=== PATIENT | male | born 1950 | race Hispanic/Latino ===

== ENCOUNTER 2016-12-17 15:33 | Emergency (ER) | payer MEDICAID ==
[2016-12-17 16:28] LABS: Basophils % (Auto) 0.4 % (0.0-1.8); Eosinophils % (Auto) 0.2 % (0.0-4.3); Hematocrit 48.8 % (35.5-45.6); Hemoglobin 15.7 gm/dl (11.8-15.2); Mean Corpuscular HGB Conc 32 % (32-34); Mean Corpuscular Hemoglobin 27 pg (28-32); Mean Corpuscular Volume 83 fl (84-94); Platelet Count 179 K/mm3 (140-440); Red Blood Count 5.85 M/mm3 (3.65-5.03); Red Cell Distribution Width 16.4 % (13.2-15.2); White Blood Count 13.4 K/mm3 (4.5-11.0)
--- NOTE | 2016-12-17 16:28 | XRay Report ---
CHEST 2 VIEWS INDICATION: Shortness of breath. COMPARISON: None similar at this institution. FINDINGS: PA and lateral chest radiographs demonstrate normal cardiomediastinal silhouette. Hyperexpanded lungs without pleural effusions or CHF. Approximately 7 mm right lower lung calcified granuloma. Few old healed left rib fractures laterally. CONCLUSION: COPD and right lower lobe probable granuloma, as described. Please also correlate clinically and with prior chest imaging, if available. Thank you for the opportunity to participate in this patient's care.
[2016-12-17 16:40] LABS: Anion Gap 18 mmol/L; BUN/Creatinine Ratio 10; Blood Urea Nitrogen 6 mg/dL (9-20); Calcium 9.1 mg/dL (8.4-10.2); Carbon Dioxide 29 mmol/L (22-30); Chloride 96.8 mmol/L (98-107); Glucose 162 mg/dL (75-100); Potassium 4.5 mmol/L (3.6-5.0); Sodium 139 mmol/L (137-145)
[2016-12-17 18:00] LABS: Bilirubin,Urine NEG (Negative); Blood,Urine NEG (Negative); Ketones,Urine NEG (Negative); Leukocyte Esterase,Urine TR (Negative); Nitrite,Urine NEG (Negative); Protein,Urine <15 mg/dL mg/dL (Negative); Urobilinogen,Urine < 2.0 mg/dL (<2.0); WBC,Urine < 1.0 /HPF (0.0-6.0)
[2016-12-17] MEDS ORDERED: PROVENTIL IH ONE (20:21)
[2016-12-18] MEDS ORDERED: ATROVENT IH ONE (02:38)
[2016-12-18] MEDS ORDERED: NORCO 5/325 PO ONE (02:38)
[2016-12-18] MEDS ORDERED: DELTASONE PO ONE (02:38)
[2016-12-18] MEDS: PROVENTIL IH ONE (03:11)
--- NOTE | 2016-12-18 04:08 | Emergency Department Report ---
ED Shortness of Breath HPI - General Chief Complaint: Dyspnea/Respdistress Stated Complaint: MED REFILL/BREATHING ISSUE Time Seen by Provider: 12/18/16 02:28 Source: patient Mode of arrival: Ambulatory Limitations: No Limitations - History of Present Illness Initial Comments: 56 year old male with a past medical history CHF, COPD, and insomnia with chronic pain secondary to previous back surgery presents to the hospital with complaints of shortness of breath and wheezing times several days. Positive cough productive of yellow sputum reported. Patient has been out of all his medications for the past 3 weeks he has not found a primary care doctor since moving from [place] 3 months ago. Patient complains of associated chest tightness with wheezing but denies actual pain. Patient denies fever, no calf tenderness, or edema. Patient complains of bilateral hip pain and was told in the past that he needs a hip replacement. - Related Data Previous Rx's Medication Instructions Recorded Last Taken Type Albuterol Sulfate [Ventolin HFA] 2 puff IH Q4H PRN #1 hfa.aer.ad 12/18/16 Unknown Rx Duloxetine HCl [Cymbalta] 60 mg PO BID #60 capsule.dr 12/18/16 Unknown Rx Fluticasone/Vilanterol [Breo 1 each IH DAILY #1 blst.w.dev 12/18/16 Unknown Rx Ellipta 200-25 Mcg INH] Gabapentin [Neurontin] 300 mg PO TID #90 capsule 12/18/16 Unknown Rx HYDROcodone/APAP 5-325 [Munger 1 each PO Q6HR PRN #15 tablet 12/18/16 Unknown Rx 5/325] Hydrochlorothiazide [HCTZ] 25 mg PO QDAY #30 tablet 12/18/16 Unknown Rx Ibuprofen 800 mg PO Q8H PRN #60 tablet 12/18/16 Unknown Rx Tiotropium [place] [Spiriva] 18 mcg IH 4XD #1 cap.w.dev 12/18/16 Unknown Rx amLODIPine [Norvasc] 10 mg PO DAILY #30 tablet 12/18/16 Unknown Rx traZODone [Desyrel] 150 mg PO QHS #30 tablet 12/18/16 Unknown Rx Allergies Allergy/AdvReac Type Severity Reaction Status Date / Time codeine Allergy Itching Verified 12/17/16 16:09 ED Review of Systems ROS: Stated complaint: MED REFILL/BREATHING ISSUE Other details as noted in HPI Comment: All other systems reviewed and negative Other: Constitutional: No fevers chills Eyes: No eye pain visual changes ENT: No ear pain or throat pain Neck: Denies pain Respiratory: As per HPI Cardiovascular: Chest tightness GI: Denies abdominal pain, nausea, vomiting, diarrhea : Denies dysuria Musculoskeletal: As per HPI Skin: Denies rash, lesions, erythema Neurologic: Denies headache, numbness, weakness Psychiatric: Denies suicidal ideation, hallucinations ED Past Medical Hx - Past Medical History Hx Congestive Heart Failure: Yes Hx Psychiatric Treatment: Yes (insomnia) Hx COPD: Yes - Surgical History Additional Surgical History: back surgery with radiating pain - Social History Smoking Status: Current Every Day Smoker Substance Use Type: Alcohol - Medications Home Medications: Home Medications Medication Instructions Recorded Confirmed Last Taken Type Albuterol Sulfate [Ventolin HFA] 2 puff IH Q4H PRN #1 hfa.aer.ad 12/18/16 Unknown Rx Duloxetine HCl [Cymbalta] 60 mg PO BID #60 capsule.dr 12/18/16 Unknown Rx Fluticasone/Vilanterol [Breo 1 each IH DAILY #1 blst.w.dev 12/18/16 Unknown Rx Ellipta 200-25 Mcg INH] Gabapentin [Neurontin] 300 mg PO TID #90 capsule 12/18/16 Unknown Rx HYDROcodone/APAP 5-325 [Munger 1 each PO Q6HR PRN #15 tablet 12/18/16 Unknown Rx 5/325] Hydrochlorothiazide [HCTZ] 25 mg PO QDAY #30 tablet 12/18/16 Unknown Rx Ibuprofen 800 mg PO Q8H PRN #60 tablet 12/18/16 Unknown Rx Tiotropium [place] [Spiriva] 18 mcg IH 4XD #1 cap.w.dev 12/18/16 Unknown Rx amLODIPine [Norvasc] 10 mg PO DAILY #30 tablet 12/18/16 Unknown Rx traZODone [Desyrel] 150 mg PO QHS #30 tablet 12/18/16 Unknown Rx ED Physical Exam - General Limitations: No Limitations - Other Other exam information: General: No limitations, patient is alert in no acute distress Head exam: Atraumatic, normocephalic Eyes exam: Normal appearance ENT: Moist mucous membrane Neck exam: Normal inspection, full range of motion, no meningismus nontender Respiratory exam: Mild persistent expiratory wheezes, no tachypnea or accessory muscle use Cardiovascular: Normal rate and rhythm, normal heart sounds Abdomen: Soft, nondistended, and nontender, with normal bowel sounds, no rebound, or guarding Extremity: Full range of motion normal inspection no deformity calf tenderness or edema. Pain to bilateral hips with movement. No shortening or deformity Back: Normal Inspection, full range of motion, no tenderness Neurologic: Alert, oriented x3, cranial nerves intact, no motor or sensory deficit Psychiatric: normal affect, normal mood Skin: Warm, dry, intact ED Course Vital Signs 12/17/16 12/17/16 12/17/16 15:49 16:02 20:35 Temperature 98.2 F 98.9 F Pulse Rate 99 H 95 H Pulse Rate [ Posterior] Respiratory 24 24 Rate Respiratory Rate [Posterior ] Blood Pressure 127/80 127/80 139/88 Blood Pressure [Left] O2 Sat by Pulse 95 93 Oximetry 12/17/16 12/17/16 12/18/16 23:45 23:59 00:00 Temperature 98.6 F Pulse Rate 84 Pulse Rate [ Posterior] Respiratory 18 Rate Respiratory Rate [Posterior ] Blood Pressure 122/79 122/79 Blood Pressure 147/79 [Left] O2 Sat by Pulse 95 97 94 Oximetry 12/18/16 12/18/16 12/18/16 00:15 00:30 00:45 Temperature Pulse Rate 82 83 83 Pulse Rate [ Posterior] Respiratory 19 18 13 Rate Respiratory Rate [Posterior ] Blood Pressure 131/86 131/86 130/80 Blood Pressure [Left] O2 Sat by Pulse 95 95 Oximetry 12/18/16 12/18/16 12/18/16 01:00 01:15 01:30 Temperature Pulse Rate 74 75 81 Pulse Rate [ Posterior] Respiratory 15 19 16 Rate Respiratory Rate [Posterior ] Blood Pressure 128/85 132/80 129/99 Blood Pressure [Left] O2 Sat by Pulse 98 98 96 Oximetry 12/18/16 12/18/16 12/18/16 01:45 02:00 02:15 Temperature Pulse Rate 77 73 76 Pulse Rate [ Posterior] Respiratory 12 12 14 Rate Respiratory Rate [Posterior ] Blood Pressure 117/76 118/75 128/86 Blood Pressure [Left] O2 Sat by Pulse 95 94 96 Oximetry 12/18/16 12/18/16 12/18/16 02:30 02:45 03:01 Temperature Pulse Rate 80 77 75 Pulse Rate [ Posterior] Respiratory 15 16 18 Rate Respiratory Rate [Posterior ] Blood Pressure 123/81 128/79 128/79 Blood Pressure [Left] O2 Sat by Pulse 97 94 95 Oximetry 12/18/16 12/18/16 12/18/16 03:15 03:16 03:31 Temperature Pulse Rate Pulse Rate [ 87 Posterior] Respiratory 16 Rate Respiratory 22 Rate [Posterior ] Blood Pressure 133/81 110/50 Blood Pressure [Left] O2 Sat by Pulse 100 100 Oximetry 12/18/16 12/18/16 12/18/16 03:45 04:00 04:06 Temperature Pulse Rate 98 H Pulse Rate [ Posterior] Respiratory 20 Rate Respiratory Rate [Posterior ] Blood Pressure 124/70 132/78 Blood Pressure 132/78 [Left] O2 Sat by Pulse 94 94 98 Oximetry 12/18/16 05:44 Temperature 98.4 F Pulse Rate 91 H Pulse Rate [ Posterior] Respiratory 16 Rate Respiratory Rate [Posterior ] Blood Pressure Blood Pressure 109/68 [Left] O2 Sat by Pulse 94 Oximetry - Reevaluation(s) Reevaluation #1: 12/18/16 04:09 Patient received nebulized treatments prior to my evaluation Reevaluation #2: 12/18/16 04:14 Wheezing improved and patient feels better with treatment. Repeat EKG and troponin pending - Consultations Consultation #1: 12/18/16 05:31 I discussed EKG with Dr. hardy. EKG reviewed and felt to be nonspecific. Patient has 2 negative cardiac enzymes and unchanged EKG without current chest pain. ED Medical Decision Making - Lab Data Result diagrams: 12/17/16 16:11 12/17/16 16:11 Lab Results 12/17/16 12/17/16 12/17/16 Range/Units 16:11 16:11 Unknown WBC 13.4 H (4.5-11.0) K/mm3 RBC 5.85 H (3.65-5.03) M/mm3 Hgb 15.7 H (11.8-15.2) gm/dl Hct 48.8 H (35.5-45.6) % MCV 83 L (84-94) fl MCH 27 L (28-32) pg MCHC 32 (32-34) % RDW 16.4 H (13.2-15.2) % Plt Count 179 (140-440) K/mm3 Lymph % (Auto) 9.8 L (13.4-35.0) % [place] % (Auto) 6.2 (0.0-7.3) % Eos % (Auto) 0.2 (0.0-4.3) % Baso % (Auto) 0.4 (0.0-1.8) % Lymph # 1.3 (1.2-5.4) K/mm3 [place] # 0.8 (0.0-0.8) K/mm3 Eos # 0.0 (0.0-0.4) K/mm3 Baso # 0.1 (0.0-0.1) K/mm3 Seg Neutrophils % 83.4 H (40.0-70.0) % Seg Neutrophils # 11.2 H (1.8-7.7) K/mm3 Sodium 139 (137-145) mmol/L Potassium 4.5 (3.6-5.0) mmol/L Chloride 96.8 L (98-107) mmol/L Carbon Dioxide 29 (22-30) mmol/L Anion Gap 18 mmol/L BUN 6 L (9-20) mg/dL Creatinine 0.6 L (0.8-1.5) mg/dL Estimated GFR > 60 ml/min BUN/Creatinine Ratio 10 % Glucose 162 H (75-100) mg/dL Calcium 9.1 (8.4-10.2) mg/dL Troponin T < 0.010 (0.00-0.029) ng/mL Urine Color Yellow (Yellow) Urine Turbidity Clear (Clear) Urine pH 7.0 (5.0-7.0) Ur Specific Solo 1.004 (1.003-1.030) Urine Protein <15 mg/dl (Negative) mg/dL Urine Glucose (UA) Neg (Negative) mg/dL Urine Ketones Neg (Negative) mg/dL Urine Blood Neg (Negative) Urine Nitrite Neg (Negative) Urine Bilirubin Neg (Negative) Urine Urobilinogen < 2.0 (<2.0) mg/dL Ur Leukocyte Esterase Tr (Negative) Urine WBC (Auto) < 1.0 (0.0-6.0) /HPF Urine RBC (Auto) 1.0 (0.0-6.0) /HPF U Epithel Cells (Auto) < 1.0 (0-13.0) /HPF - EKG Data -: EKG Interpreted by Me (sinus tach 99, PACs, left anterior fascicular block, early R-wave progressi) EKG shows normal: sinus rhythm Rate: normal (anterolateral ST depression) - EKG Data 12/18/16 05:31 BP EKG is sinus at a rate 89, PACs, and unchanged from previous. Persistent minimal anterolateral ST depression - Radiology Data Radiology results: report reviewed (chest x-ray: COPD, right lower lobe probable granuloma) - Medical Decision Making second troponin was negative. EKG unchanged thought to be nonspecific per lawn care specialist traffic control officer. Patient will be provided to refill his medications and outpatient follow-up - Differential Diagnosis COPD, asthma, CHF, bronchitis Critical Care Time: No Critical care attestation.: If time is entered above; I have spent that time in minutes in the direct care of this critically ill patient, excluding procedure time. ED Disposition Clinical Impression: COPD exacerbation, Medication refill, Chronic pain Disposition: TO HOME OR SELFCARE Is pt being admited?: No Does the pt Need Aspirin: No Condition: Stable Instructions: Chronic Obstructive Pulmonary Disease (ED) Additional Instructions: Continue medication as prescribed. Follow-up with the clinic or primary care doctor provider for further management. Return if symptoms worsen. Prescriptions: Albuterol Sulfate [Ventolin HFA] 2 puff IH Q4H PRN #1 hfa.aer.ad PRN Reason: Shortness Of Breath amLODIPine [Norvasc] 10 mg PO DAILY #30 tablet Duloxetine HCl [Cymbalta] 60 mg PO BID #60 capsule. Fluticasone/Vilanterol [Breo Ellipta 200-25 Mcg INH] 1 each IH DAILY #1 blst.w.dev Gabapentin [Neurontin] 300 mg PO TID #90 capsule Hydrochlorothiazide [HCTZ] 25 mg PO QDAY #30 tablet HYDROcodone/APAP 5-325 [Munger 5/325] 1 each PO Q6HR PRN #15 tablet PRN Reason: Pain Ibuprofen 800 mg PO Q8H PRN #60 tablet PRN Reason: Pain Tiotropium [place] [Spiriva] 18 mcg IH 4XD #1 cap.w.dev traZODone [Desyrel] 150 mg PO QHS #30 tablet Referrals: [facility] [Provider Group] - 3-5 Days VISHAL MCMILLAN MD [Staff Physician] - 3-5 Days Time of Disposition: 05:51
[2016-12-18 11:35] VITALS: BP 109/68
== END 2016-12-18 06:50 | disposition home or self-care (01) ==
LOC: ED 15:33
DX: J44.1 Chronic obstructive pulmonary disease with (acute) exacerbation (principal); G89.29 Other chronic pain; I50.9 Heart failure, unspecified; F17.200 Nicotine dependence, unspecified, uncomplicated; Z88.6 Allergy status to analgesic agent
CPT/HCPCS: 36415; 71020; 80048; 81001; 84484; 85025; 93005; 93010; 99284; J7512

== ENCOUNTER 2017-04-27 08:29 | Emergency (ER) | payer MEDICARE ==
[2017-04-27 08:57] VITALS: BP 120/68
--- NOTE | 2017-04-27 09:54 | XRay Report ---
Single view chest: Compared to 01/17/17. History: Shortness of breath. Findings: Normal cardiomediastinal silhouette. Trachea is midline. Mild COPD. No acute consolidation or pleural effusion. Impression: No acute cardiopulmonary findings.
[2017-04-27 10:37] LABS: Hematocrit TNR % (35.5-45.6); Hemoglobin TNR gm/dl (11.8-15.2); Mean Corpuscular Volume TNR fl (84-94); Red Blood Count TNR M/mm3 (3.65-5.03)
[2017-04-27 10:38] LABS: Basophils % (Auto) TNR % (0.0-1.8); Eosinophils % (Auto) TNR % (0.0-4.3); Lymphocytes # (Auto) TNR K/mm3 (1.2-5.4); Lymphocytes % (Auto) TNR % (13.4-35.0); Mean Corpuscular HGB Conc TNR % (32-34); Mean Corpuscular Hemoglobin TNR pg (28-32); Mean Platelet Volume TNR fl (6-12); Monocytes % (Auto) TNR % (0.0-7.3); Platelet Count TNR K/mm3 (140-440); Red Cell Distribution Width TNR % (13.2-15.2)
[2017-04-27 10:39] LABS: BUN/Creatinine Ratio 7; Basophils # (Auto) TNR K/mm3 (0.0-0.1); Blood Urea Nitrogen 4 mg/dL (9-20); Calcium 8.2 mg/dL (8.4-10.2); Eosinophils # (Auto) TNR K/mm3 (0.0-0.4); Hemolysis Index 140; Monocytes # (Auto) TNR K/mm3 (0.0-0.8)
[2017-04-27 10:43] LABS: Alanine Aminotransferase 10 units/L (7-56); Albumin 3.5 g/dL (3.9-5)
[2017-04-27 10:46] LABS: Bilirubin,Direct < 0.2 mg/dL (0-0.2)
[2017-04-27] MEDS ORDERED: DUONEB *Not for PRN Use IH ONE (10:56)
[2017-04-27 11:03] LABS: INR 0.92 (0.87-1.13)
[2017-04-27 11:04] LABS: Partial Thromboplastin Time 22.3 Sec. (24.2-36.6)
[2017-04-27 11:22] LABS: Creatine Kinase MB 1.8 ng/mL (0.0-4.0)
--- NOTE | 2017-04-27 11:50 | Emergency Department Report ---
ED General Adult HPI - General Chief complaint: Dyspnea/Respdistress Stated complaint: SHANA Time Seen by Provider: 04/27/17 09:33 Source: patient, EMS Mode of arrival: Stretcher Limitations: No Limitations - History of Present Illness Initial comments: The patient states that he is out of his medication for his home neb machine. He presented to the emergency department via EMS after receiving albuterol treatments. He states that his breathing is much improved at the time of my encounter. He denies having any chest pain pressure or tightness. He does not complain of any fever or chills or cough recently. He is essentially asymptomatic at the time of my exam. -: days(s) Associated Symptoms: denies other symptoms Treatments Prior to Arrival: other (albuterol) - Related Data Previous Rx's Medication Instructions Recorded Last Taken Type Albuterol Sulfate [Ventolin HFA] 2 puff IH Q4H PRN #1 hfa.aer.ad 01/21/17 Unknown Rx Duloxetine HCl [Cymbalta] 60 mg PO BID #60 capsule. 01/21/17 Unknown Rx Fluticasone/Vilanterol [Breo 1 each IH DAILY #1 blst.w.dev 01/21/17 Unknown Rx Ellipta 200-25 Mcg INH] Folic Acid [Folvite] 1 mg PO QDAY #30 tablet 01/21/17 Unknown Rx Gabapentin [Neurontin] 300 mg PO TID #90 capsule 01/21/17 Unknown Rx HYDROcodone/APAP 5-325 [[place] 1 each PO Q6H PRN #14 tablet 01/21/17 Unknown Rx 5-325 mg TAB] Hydrochlorothiazide [HCTZ] 25 mg PO QDAY #30 tablet 01/21/17 Unknown Rx Nicotine [Habitrol] 14 mg TD QDAY #30 patch 01/21/17 Unknown Rx Prednisone [predniSONE 10 mg 10 mg PO .TAPER #1 tab.ds.pk 01/21/17 Unknown Rx (6-Day Pack, 21 Tabs)] Thiamine [Vitamin B-1] 100 mg PO QDAY #30 tablet 01/21/17 Unknown Rx Tiotropium [place] [Spiriva] 18 mcg IH 4XD #1 cap.w.dev 01/21/17 Unknown Rx amLODIPine [Norvasc] 10 mg PO DAILY #30 tablet 01/21/17 Unknown Rx traZODone [Desyrel] 150 mg PO QHS #30 tablet 01/21/17 Unknown Rx ALBUTEROL Inhaler [ProAir HFA 1 puff IH Q4H PRN #1 inha 04/27/17 Unknown Rx Inhaler] ALBUTEROL NEB's [Proventil 0.083% 2.5 mg IH TID PRN #90 neb 04/27/17 Unknown Rx NEBS] predniSONE [Deltasone] 20 mg PO QDAY #6 tab 04/27/17 Unknown Rx Allergies Allergy/AdvReac Type Severity Reaction Status Date / Time codeine Allergy Itching Verified 12/17/16 16:09 ED Review of Systems ROS: Stated complaint: SHANA Other details as noted in HPI Constitutional: denies: chills, fever Eyes: denies: eye pain, eye discharge, vision change ENT: denies: ear pain, throat pain Respiratory: wheezing. denies: cough Cardiovascular: denies: chest pain, palpitations Endocrine: no symptoms reported Gastrointestinal: denies: abdominal pain, nausea, diarrhea Genitourinary: denies: urgency, dysuria Musculoskeletal: denies: back pain, joint swelling, arthralgia Skin: denies: rash, lesions Neurological: denies: headache, weakness, paresthesias Psychiatric: denies: anxiety, depression Hematological/Lymphatic: denies: easy bleeding, easy bruising ED Past Medical Hx - Past Medical History Hx Congestive Heart Failure: Yes Hx Psychiatric Treatment: Yes (insomnia) Hx COPD: Yes - Surgical History Additional Surgical History: back surgery with radiating pain - Social History Smoking Status: Current Every Day Smoker Substance Use Type: Alcohol - Medications Home Medications: Home Medications Medication Instructions Recorded Confirmed Last Taken Type Albuterol Sulfate [Ventolin HFA] 2 puff IH Q4H PRN #1 hfa.aer.ad 01/21/17 Unknown Rx Duloxetine HCl [Cymbalta] 60 mg PO BID #60 capsule. 01/21/17 Unknown Rx Fluticasone/Vilanterol [Breo 1 each IH DAILY #1 blst.w.dev 01/21/17 Unknown Rx Ellipta 200-25 Mcg INH] Folic Acid [Folvite] 1 mg PO QDAY #30 tablet 01/21/17 Unknown Rx Gabapentin [Neurontin] 300 mg PO TID #90 capsule 01/21/17 Unknown Rx HYDROcodone/APAP 5-325 [[place] 1 each PO Q6H PRN #14 tablet 01/21/17 Unknown Rx 5-325 mg TAB] Hydrochlorothiazide [HCTZ] 25 mg PO QDAY #30 tablet 01/21/17 Unknown Rx Nicotine [Habitrol] 14 mg TD QDAY #30 patch 01/21/17 Unknown Rx Prednisone [predniSONE 10 mg 10 mg PO .TAPER #1 tab.ds.pk 01/21/17 Unknown Rx (6-Day Pack, 21 Tabs)] Thiamine [Vitamin B-1] 100 mg PO QDAY #30 tablet 01/21/17 Unknown Rx Tiotropium [place] [Spiriva] 18 mcg IH 4XD #1 cap.w.dev 01/21/17 Unknown Rx amLODIPine [Norvasc] 10 mg PO DAILY #30 tablet 01/21/17 Unknown Rx traZODone [Desyrel] 150 mg PO QHS #30 tablet 01/21/17 Unknown Rx ALBUTEROL Inhaler [ProAir HFA 1 puff IH Q4H PRN #1 inha 04/27/17 Unknown Rx Inhaler] ALBUTEROL NEB's [Proventil 0.083% 2.5 mg IH TID PRN #90 neb 04/27/17 Unknown Rx NEBS] predniSONE [Deltasone] 20 mg PO QDAY #6 tab 04/27/17 Unknown Rx ED Physical Exam - General Limitations: No Limitations General appearance: alert, in no apparent distress - Head Head exam: Present: atraumatic, normocephalic - Eye Eye exam: Present: normal appearance. Absent: scleral icterus - ENT ENT exam: Present: mucous membranes moist - Neck Neck exam: Present: normal inspection - Respiratory Respiratory exam: Present: decreased breath sounds (breath sounds are somewhat distant but there was no wheezing). Absent: respiratory distress - Cardiovascular Cardiovascular Exam: Present: regular rate, normal rhythm. Absent: systolic murmur, diastolic murmur, rubs, gallop - GI/Abdominal GI/Abdominal exam: Present: soft, normal bowel sounds. Absent: distended, tenderness, guarding, rebound, rigid - Rectal Rectal exam: Present: deferred - Extremities Exam Extremities exam: Present: normal inspection - Back Exam Back exam: Present: normal inspection - Neurological Exam Neurological exam: Present: alert, oriented X3, CN II-XII intact. Absent: motor sensory deficit - Psychiatric Psychiatric exam: Present: normal affect, normal mood - Skin Skin exam: Present: warm, dry, intact, normal color. Absent: rash ED Course Vital Signs 04/27/17 04/27/17 04/27/17 08:52 11:26 11:39 Temperature 97.8 F Pulse Rate 81 Pulse Rate [ 97 H 79 Anterior Bilateral Throughout] Respiratory 18 18 Rate [Anterior Bilateral Throughout] Blood Pressure 120/68 O2 Sat by Pulse 99 Oximetry - Reevaluation(s) Reevaluation #1: Patient received another neb with improvement. He will be given a prescription for albuterol solution, inhaler, and a brief course of prednisone. He will be referred for primary care follow-up. He will be given the name of a rough rice tender as well. 04/27/17 11:50 ED Medical Decision Making - Lab Data Result diagrams: 04/27/17 11:46 04/27/17 09:54 Laboratory Results - last 24 hr 04/27/17 04/27/17 04/27/17 09:54 09:54 09:54 WBC TNR RBC TNR Hgb TNR Hct TNR MCV TNR MCH TNR MCHC TNR RDW TNR Plt Count TNR Lymph % (Auto) TNR Lane % (Auto) TNR Eos % (Auto) TNR Baso % (Auto) TNR Lymph # TNR Lane # TNR Eos # TNR Baso # TNR Seg Neutrophils % TNR Seg Neutrophils # TNR PT 12.8 INR 0.92 APTT 22.3 L Sodium 142 Potassium 4.1 Chloride 99.0 Carbon Dioxide 30 Anion Gap 17 BUN 4 L Creatinine 0.6 L Estimated GFR > 60 BUN/Creatinine Ratio 7 Glucose 87 Lactic Acid Calcium 8.2 L Magnesium Total Bilirubin Direct Bilirubin Indirect Bilirubin AST ALT Alkaline Phosphatase Total Creatine Kinase CK-MB (CK-2) CK-MB (CK-2) Rel Index Troponin T NT-Pro-B Natriuret Pep Total Protein Albumin Albumin/Globulin Ratio 04/27/17 04/27/17 09:54 09:54 WBC RBC Hgb Hct MCV MCH MCHC RDW Plt Count Lymph % (Auto) Lane % (Auto) Eos % (Auto) Baso % (Auto) Lymph # Lane # Eos # Baso # Seg Neutrophils % Seg Neutrophils # PT INR APTT Sodium Potassium Chloride Carbon Dioxide Anion Gap BUN Creatinine Estimated GFR BUN/Creatinine Ratio Glucose Lactic Acid 1.70 Calcium Magnesium 1.80 Total Bilirubin 0.30 Direct Bilirubin < 0.2 Indirect Bilirubin 0.1 AST 15 ALT 10 Alkaline Phosphatase 40 Total Creatine Kinase 62 CK-MB (CK-2) 1.8 CK-MB (CK-2) Rel Index 2.9 Troponin T < 0.010 NT-Pro-B Natriuret Pep 54.45 Total Protein 5.7 L Albumin 3.5 L Albumin/Globulin Ratio 1.6 Laboratory Results - last 24 hr 04/27/17 04/27/17 04/27/17 09:54 09:54 09:54 WBC TNR RBC TNR Hgb TNR Hct TNR MCV TNR MCH TNR MCHC TNR RDW TNR Plt Count TNR Lymph % (Auto) TNR Lane % (Auto) TNR Eos % (Auto) TNR Baso % (Auto) TNR Lymph # TNR Lane # TNR Eos # TNR Baso # TNR Seg Neutrophils % TNR Seg Neutrophils # TNR PT 12.8 INR 0.92 APTT 22.3 L Sodium 142 Potassium 4.1 Chloride 99.0 Carbon Dioxide 30 Anion Gap 17 BUN 4 L Creatinine 0.6 L Estimated GFR > 60 BUN/Creatinine Ratio 7 Glucose 87 Lactic Acid Calcium 8.2 L Magnesium Total Bilirubin Direct Bilirubin Indirect Bilirubin AST ALT Alkaline Phosphatase Total Creatine Kinase CK-MB (CK-2) CK-MB (CK-2) Rel Index Troponin T NT-Pro-B Natriuret Pep Total Protein Albumin Albumin/Globulin Ratio 04/27/17 04/27/17 09:54 09:54 WBC RBC Hgb Hct MCV MCH MCHC RDW Plt Count Lymph % (Auto) Lane % (Auto) Eos % (Auto) Baso % (Auto) Lymph # Lane # Eos # Baso # Seg Neutrophils % Seg Neutrophils # PT INR APTT Sodium Potassium Chloride Carbon Dioxide Anion Gap BUN Creatinine Estimated GFR BUN/Creatinine Ratio Glucose Lactic Acid 1.70 Calcium Magnesium 1.80 Total Bilirubin 0.30 Direct Bilirubin < 0.2 Indirect Bilirubin 0.1 AST 15 ALT 10 Alkaline Phosphatase 40 Total Creatine Kinase 62 CK-MB (CK-2) 1.8 CK-MB (CK-2) Rel Index 2.9 Troponin T < 0.010 NT-Pro-B Natriuret Pep 54.45 Total Protein 5.7 L Albumin 3.5 L Albumin/Globulin Ratio 1.6 - EKG Data -: EKG Interpreted by Me EKG shows normal: sinus rhythm, axis, intervals, QRS complexes, ST-T waves Rate: normal - EKG Data Interpretation: no acute changes - Radiology Data Radiology results: report reviewed (consistent with COPD no acute change) Critical care attestation.: If time is entered above; I have spent that time in minutes in the direct care of this critically ill patient, excluding procedure time. ED Disposition Clinical Impression: COPD exacerbation Disposition: TO HOME OR SELFCARE Is pt being admited?: No Does the pt Need Aspirin: No Condition: Stable Instructions: Chronic Bronchitis (ED) Additional Instructions: Follow-up with her primary care physician. Return any acute change or problem. Rx as directed. Prescriptions: ALBUTEROL Inhaler [ProAir HFA Inhaler] 1 puff IH Q4H PRN #1 inha PRN Reason: Wheezing ALBUTEROL NEB's [Proventil 0.083% NEBS] 2.5 mg IH TID PRN #90 neb PRN Reason: Wheezing predniSONE [Deltasone] 20 mg PO QDAY #6 tab Referrals: [facility] [Primary Care Provider] - 3-5 Days MIKE FOUNTAIN MD [Staff Physician] - 3-5 Days [facility] [Provider Group] - 2-3 Days Time of Disposition: 12:02
[2017-04-27 11:57] LABS: Basophils # (Auto) 0.1 K/mm3 (0.0-0.1); Eosinophils # (Auto) 0.2 K/mm3 (0.0-0.4); Eosinophils % (Auto) 3.7 % (0.0-4.3); Hematocrit 40.3 % (35.5-45.6); Hemoglobin 13.4 gm/dl (11.8-15.2); Lymphocytes # (Auto) 1.5 K/mm3 (1.2-5.4); Lymphocytes % (Auto) 28.4 % (13.4-35.0); Mean Corpuscular HGB Conc 33 % (32-34); Mean Corpuscular Hemoglobin 29 pg (28-32); Mean Corpuscular Volume 86 fl (84-94); Monocytes # (Auto) 0.5 K/mm3 (0.0-0.8); Monocytes % (Auto) 8.9 % (0.0-7.3); Platelet Count 154 K/mm3 (140-440); Red Blood Count 4.69 M/mm3 (3.65-5.03); Red Cell Distribution Width 13.7 % (13.2-15.2)
[2017-04-27] MEDS ORDERED: ULTRAM PO ONE (12:07)
[2017-04-27] MEDS ORDERED: DELTASONE PO ONE (12:07)
[2017-04-27 12:58] LABS: Bilirubin,Urine NEG (Negative); Blood,Urine NEG (Negative); Color,Urine Straw (Yellow); Nitrite,Urine NEG (Negative); Protein,Urine <15 mg/dL mg/dL (Negative); WBC,Urine < 1.0 /HPF (0.0-6.0)
[2017-04-27 12:59] LABS: RBC,Urine < 1.0 /HPF (0.0-6.0)
== END 2017-04-27 14:39 | disposition home or self-care (01) ==
LOC: ED 08:29
DX: J44.1 Chronic obstructive pulmonary disease with (acute) exacerbation (principal); G47.00 Insomnia, unspecified; Z88.5 Allergy status to narcotic agent; F17.200 Nicotine dependence, unspecified, uncomplicated
CPT/HCPCS: 36415; 71045; 80048; 80074; 81001; 82140; 82550; 82553; 83735; 83880; 84484; 85025; 85610; 85730; 94640; 99284; J7512

== ENCOUNTER 2017-05-13 19:26 | Emergency (ER) | payer MEDICARE ==
[2017-05-13 20:43] LABS: Hematocrit 41.2 % (35.5-45.6); Hemoglobin 13.8 gm/dl (11.8-15.2); Mean Corpuscular HGB Conc 34 % (32-34); Mean Corpuscular Hemoglobin 29 pg (28-32); Mean Corpuscular Volume 86 fl (84-94); Platelet Count 203 K/mm3 (140-440); Red Cell Distribution Width 13.9 % (13.2-15.2)
[2017-05-13 21:00] LABS: BUN/Creatinine Ratio 15; Blood Urea Nitrogen 6 mg/dL (9-20); Calcium 8.8 mg/dL (8.4-10.2); Hemolysis Index 10
[2017-05-13 21:14] LABS: Basophils % (Manual) 0 % (0.0-1.8); Eosinophils % (Manual) 0 % (0.0-4.3); Large Platelets Few; Platelet Estimate Consistent w Auto; Total Cells Counted 100
[2017-05-13 21:15] LABS: Anisocytosis 1+
[2017-05-13] MEDS ORDERED: XOPENEX IH ONE (22:09)
[2017-05-13] MEDS ORDERED: ATROVENT IH ONE (22:09)
[2017-05-13] MEDS ORDERED: ASPIRIN PO ONE (22:14)
[2017-05-13] MEDS ORDERED: ULTRAM PO ONE (22:16)
[2017-05-13] MEDS ORDERED: DELTASONE PO ONE (22:21)
--- NOTE | 2017-05-13 22:24 | XRay Report ---
FINAL REPORT PROCEDURE: Chest. TECHNIQUE: PA and lateral chest radiographs were obtained. CPT 90838 HISTORY: Shortness of breath. COMPARISON: No prior studies are available for comparison. FINDINGS: The heart and mediastinum appear normal. There is mild tortuosity of the thoracic aorta. The lungs are clear but hyperinflated. There are no pleural effusions. The soft tissues and regional skeleton are unremarkable. IMPRESSION: COPD.
--- NOTE | 2017-05-13 22:25 | Emergency Department Report ---
HPI - General Chief Complaint: Dyspnea/Respdistress Time Seen by Provider: 05/13/17 22:01 - HPI HPI: Inderjit Ortiz The patient is a 67-year-old male presented with the chief complaint of shortness of breath. Patient states the past 3 months has been feeling short of breath. Patient states he feels like he is "underwater." Patient also complains of bilateral chest pain for the past 2-3 months has been sharp in nature. The patient states his shortness of breath feels like his COPD. Patient states he does not have a nebulizer at home but only a hand-held pump. Patient complains of chest pain with cough and states his cough has been productive. Patient currently denies chest pain Location: Lungs, see above Duration: 3 Months Quality: Sharp Severity: Moderate Modifying factors: [see above] Context: [see above] Mode of transportation: [not driving] ED Past Medical Hx - Past Medical History Hx Congestive Heart Failure: Yes Hx Psychiatric Treatment: Yes (insomnia) Hx COPD: Yes - Surgical History Additional Surgical History: back surgery with radiating pain, herniorrhaphy, cardiac catheterization - Family History Family history: no significant - Social History Smoking Status: Current Every Day Smoker (1 pack per day) Substance Use Type: Alcohol (occasional), Marijuana - Medications Home Medications: Home Medications Medication Instructions Recorded Confirmed Last Taken Type Albuterol Sulfate [Ventolin HFA] 2 puff IH Q4H PRN #1 hfa.aer.ad 01/21/17 Unknown Rx Duloxetine HCl [Cymbalta] 60 mg PO BID #60 capsule. 01/21/17 Unknown Rx Fluticasone/Vilanterol [Breo 1 each IH DAILY #1 blst.w.dev 01/21/17 Unknown Rx Ellipta 200-25 Mcg INH] Folic Acid [Folvite] 1 mg PO QDAY #30 tablet 01/21/17 Unknown Rx Gabapentin [Neurontin] 300 mg PO TID #90 capsule 01/21/17 Unknown Rx HYDROcodone/APAP 5-325 [[place] 1 each PO Q6H PRN #14 tablet 01/21/17 Unknown Rx 5-325 mg TAB] Hydrochlorothiazide [HCTZ] 25 mg PO QDAY #30 tablet 01/21/17 Unknown Rx Nicotine [Habitrol] 14 mg TD QDAY #30 patch 01/21/17 Unknown Rx Prednisone [predniSONE 10 mg 10 mg PO .TAPER #1 tab.ds.pk 01/21/17 Unknown Rx (6-Day Pack, 21 Tabs)] Thiamine [Vitamin B-1] 100 mg PO QDAY #30 tablet 01/21/17 Unknown Rx Tiotropium [place] [Spiriva] 18 mcg IH 4XD #1 cap.w.dev 01/21/17 Unknown Rx amLODIPine [Norvasc] 10 mg PO DAILY #30 tablet 01/21/17 Unknown Rx traZODone [Desyrel] 150 mg PO QHS #30 tablet 01/21/17 Unknown Rx ALBUTEROL Inhaler [ProAir HFA 1 puff IH Q4H PRN #1 inha 04/27/17 Unknown Rx Inhaler] ALBUTEROL NEB's [Proventil 0.083% 2.5 mg IH TID PRN #90 neb 04/27/17 Unknown Rx NEBS] predniSONE [Deltasone] 20 mg PO QDAY #6 tab 04/27/17 Unknown Rx ALBUTEROL Inhaler [Proair] 2 puff IH QID PRN #1 inhalation 05/13/17 Unknown Rx Azithromycin [Zithromax Z-SERGE] 0 mg PO DAILY #6 tab 05/13/17 Unknown Rx HYDROcodone/APAP 5-325 [[place] 1 - 2 each PO Q6HR PRN #10 tablet 05/13/17 Unknown Rx 5/325] Ibuprofen [Motrin 800 MG tab] 800 mg PO Q8HR PRN #20 tablet 05/13/17 Unknown Rx Prednisone [predniSONE 10 mg 10 mg PO .TAPER #1 tab.ds.pk 05/13/17 Unknown Rx (6-Day Pack, 21 Tabs)] ED Review of Systems ROS: Stated complaint: SHANA Other details as noted in HPI Constitutional: diaphoresis Respiratory: cough, shortness of breath Gastrointestinal: nausea. denies: vomiting Musculoskeletal: myalgia Skin: denies: rash, lesions Physical Exam - Physical Exam Vital Signs: Vital Signs 05/13/17 20:00 Temperature 99.6 F Pulse Rate 90 Respiratory 20 Rate Blood Pressure 140/78 O2 Sat by Pulse 96 Oximetry Physical Exam: GENERAL: The patient is well-developed well-nourished male lying on stretcher not appearing to be in acute distress. [] HEENT: Normocephalic. Atraumatic. Extraocular motions are intact. Patient has moist mucous membranes. NECK: Supple. Trachea midline CHEST/LUNGS: Faint/rare expiratory wheeze right lung. There is no respiratory distress noted. HEART/CARDIOVASCULAR: Regular. There is no tachycardia. There is no gallop rub or murmur. ABDOMEN: Abdomen is soft, nontender. Patient has normal bowel sounds. There is no abdominal distention. SKIN: There is no rash. There is no edema. There is no diaphoresis. NEURO: The patient is awake, alert, and oriented. The patient is cooperative. The patient has normal speech MUSCULOSKELETAL: There is no evidence of acute injury. ED Course Vital Signs 05/13/17 20:00 Temperature 99.6 F Pulse Rate 90 Respiratory 20 Rate Blood Pressure 140/78 O2 Sat by Pulse 96 Oximetry - Reevaluation(s) Reevaluation #1: 05/13/17 23:18 Patient improved. Patient without complaints currently ED Medical Decision Making - Lab Data Result diagrams: 05/13/17 20:22 05/13/17 20:22 Laboratory Tests 05/13/17 05/13/17 05/13/17 20:22 20:22 22:10 WBC 12.0 H RBC 4.80 Hgb 13.8 Hct 41.2 MCV 86 MCH 29 MCHC 34 RDW 13.9 Plt Count 203 Add Manual Diff Complete Total Counted 100 Seg Neutrophils % Gear Coding Machine Operator Seg Neuts % (Manual) 96.0 H Band Neutrophils % 0 Lymphocytes % (Manual) 1.0 L Reactive Lymphs % (Man) 0 Monocytes % (Manual) 3.0 Eosinophils % (Manual) 0 Basophils % (Manual) 0 Metamyelocytes % 0 Myelocytes % 0 Promyelocytes % 0 Blast Cells % 0 Nucleated RBC % Not Reportable Seg Neutrophils # Man 11.5 H Band Neutrophils # 0.0 Lymphocytes # (Manual) 0.1 L Abs React Lymphs (Man) 0.0 Monocytes # (Manual) 0.4 Eosinophils # (Manual) 0.0 Basophils # (Manual) 0.0 Metamyelocytes # 0.0 Myelocytes # 0.0 Promyelocytes # 0.0 Blast Cells # 0.0 WBC Morphology Not Reportable Hypersegmented Neuts Not Reportable Hyposegmented Neuts Not Reportable Hypogranular Neuts Not Reportable Smudge Cells Not Reportable Toxic Granulation Not Reportable Toxic Vacuolation Not Reportable Dohle Bodies Not Reportable Pelger-Huet Anomaly Not Reportable Melinda Rods Not Reportable Platelet Estimate Consistent w auto Clumped Platelets Not Reportable Plt Clumps, EDTA Not Reportable Large Platelets Few Giant Platelets Not Reportable Platelet Satelliting Not Reportable Plt Morphology Comment Not Reportable RBC Morphology Not Reportable Dimorphic RBCs Not Reportable Polychromasia Not Reportable Hypochromasia Not Reportable Poikilocytosis Not Reportable Anisocytosis 1+ Microcytosis Not Reportable Macrocytosis Not Reportable Spherocytes Not Reportable Pappenheimer Bodies Not Reportable Sickle Cells Not Reportable Target Cells Not Reportable Tear Drop Cells Not Reportable Ovalocytes Not Reportable Helmet Cells Not Reportable [place] Bodies Not Reportable [place] Rings Not Reportable [place] Cells Not Reportable Bite Cells Not Reportable Crenated Cell Not Reportable Elliptocytes Not Reportable Acanthocytes (Spur) Not Reportable Rouleaux Not Reportable Hemoglobin C Crystals Not Reportable Schistocytes Not Reportable Malaria parasites Not Reportable Olvin Bodies Not Reportable Hem Pathologist Commnt No Sodium 136 L Potassium 4.6 Chloride 93.1 L Carbon Dioxide 30 Anion Gap 18 BUN 6 L Creatinine 0.4 L Estimated GFR > 60 BUN/Creatinine Ratio 15 Glucose 99 Calcium 8.8 Total Creatine Kinase 55 CK-MB (CK-2) 2.1 CK-MB (CK-2) Rel Index 3.8 Troponin T < 0.010 - EKG Data -: EKG Interpreted by Me EKG shows normal: sinus rhythm Rate: normal - EKG Data When compared to previous EKG there are: previous EKG unavailable Interpretation: nonspecific ST-T wave bob (T-wave inversion in lead 3) - Radiology Data Radiology results: image reviewed (chest x-ray) interpreted by me: Chest x-ray-no focal left wrist, no pneumothorax. Hyperinflated lungs consistent with COPD. - Differential Diagnosis COPD exacerbation, pneumonia, bronchitis, ACS Critical care attestation.: If time is entered above; I have spent that time in minutes in the direct care of this critically ill patient, excluding procedure time. ED Disposition Clinical Impression: COPD exacerbation Disposition: DC-01 TO HOME OR SELFCARE Is pt being admited?: No Does the pt Need Aspirin: No Condition: Stable Instructions: Chronic Bronchitis (ED) Additional Instructions: Return to the emergency department immediately should you develop worsening symptoms, fever, inability to tolerate food or liquid or any other concerns. Prescriptions: ALBUTEROL Inhaler [Proair] 2 puff IH QID PRN #1 inhalation PRN Reason: Shortness Of Breath Azithromycin [Zithromax Z-SERGE] 0 mg PO DAILY #6 tab HYDROcodone/APAP 5-325 [[place] 5/325] 1 - 2 each PO Q6HR PRN #10 tablet PRN Reason: Pain Ibuprofen [Motrin 800 MG tab] 800 mg PO Q8HR PRN #20 tablet PRN Reason: Pain Prednisone [predniSONE 10 mg (6-Day Pack, 21 Tabs)] 10 mg PO .TAPER #1 tab.ds.pk Referrals: DIXON STARKEY MD [Primary Care Provider] - 3-5 Days [facility] [Outside] - 3-5 Days DAVIE TORRES MD [Staff Physician] - 3-5 Days Time of Disposition: 23:20
[2017-05-13 22:26] LABS: Creatine Kinase MB 2.1 ng/mL (0.0-4.0)
[2017-05-14 01:39] VITALS: BP 165/75
== END 2017-05-14 00:15 | disposition home or self-care (01) ==
LOC: ED 19:26
DX: J44.1 Chronic obstructive pulmonary disease with (acute) exacerbation (principal); F17.200 Nicotine dependence, unspecified, uncomplicated; I50.9 Heart failure, unspecified; G47.00 Insomnia, unspecified
CPT/HCPCS: 36415; 71046; 80048; 82550; 82553; 84484; 85007; 85025; 93005; 93010; 94640; 99284; J7512

== ENCOUNTER 2017-09-17 18:12 | Inpatient (IN) | payer MEDICARE ==
[2017-09-17 18:54] LABS: Basophils # (Auto) 0.1 K/mm3 (0.0-0.1); Basophils % (Auto) 0.7 % (0.0-1.8); Eosinophils % (Auto) 0.3 % (0.0-4.3); Hematocrit 43.7 % (35.5-45.6); Hemoglobin 14.6 gm/dl (11.8-15.2); Lymphocytes # (Auto) 0.9 K/mm3 (1.2-5.4); Lymphocytes % (Auto) 10.3 % (13.4-35.0); Mean Corpuscular HGB Conc 33 % (32-34); Mean Corpuscular Hemoglobin 30 pg (28-32); Mean Corpuscular Volume 91 fl (84-94); Monocytes # (Auto) 0.7 K/mm3 (0.0-0.8); Monocytes % (Auto) 7.7 % (0.0-7.3); Red Blood Count 4.83 M/mm3 (3.65-5.03); Red Cell Distribution Width 13.9 % (13.2-15.2)
[2017-09-17 19:10] LABS: Platelet Count 119 K/mm3 (140-440)
[2017-09-17 19:11] LABS: Alanine Aminotransferase 47 units/L (7-56); Albumin 3.9 g/dL (3.9-5); BUN/Creatinine Ratio 20; Blood Urea Nitrogen 8 mg/dL (9-20); Hemolysis Index 1
[2017-09-17 19:25] LABS: INR 0.93 (0.87-1.13)
[2017-09-17] MEDS ORDERED: DELTASONE PO ONE (19:29)
[2017-09-17] MEDS ORDERED: DUONEB *Not for PRN Use IH ONE (19:29)
[2017-09-17] MEDS ORDERED: PROVENTIL IH ONE (19:30)
--- NOTE | 2017-09-17 21:15 | XRay Report ---
FINAL REPORT EXAM: XR CHEST 1V AP HISTORY: possible Sepsis TECHNIQUE: 2, portable chest x-rays. PRIORS: 13 May 2017. FINDINGS: Cardiac and mediastinal silhouette within normal limits. Lungs are hyperinflated, with probable mild and chronic interstitial change or scarring scattered bilaterally about the same. Small, calcified granuloma again projects over right lower lung. No significant vascular congestion, focal consolidation or apparent pneumothorax. Bony thorax grossly unremarkable. IMPRESSION: 1. Stable examination. No acute consolidation.
[2017-09-17] MEDS ORDERED: NACL 0.9% 1000 ML 1,000 ML IV ONE (21:21)
--- NOTE | 2017-09-17 21:22 | Emergency Department Report ---
ED General Adult HPI - General Chief complaint: Chest Pain Stated complaint: CHEST PAIN Time Seen by Provider: 09/17/17 19:13 Source: patient, EMS Mode of arrival: Stretcher Limitations: No Limitations - History of Present Illness Initial comments: 3 days of left-sided chest pain that is nonradiating, intermittent, nonpleuritic. Sharp in nature. It is similar to pain that he had 8 months ago , but there were never able to find a cause. Patient says he has his usual white productive cough. He was given nitroglycerin by EMS which did improve his pain. He has a history of COPD. He is on 2 L nasal cannula at home. No family history of ACS. Smoker. Patient states he has not eaten in the past 3 days. Severity scale (0 -10): 5 - Related Data Previous Rx's Medication Instructions Recorded Last Taken Type Albuterol Sulfate [Ventolin HFA] 2 puff IH Q4H PRN #1 hfa.aer.ad 01/21/17 Unknown Rx Duloxetine HCl [Cymbalta] 60 mg PO BID #60 capsule. 01/21/17 Unknown Rx Fluticasone/Vilanterol [Breo 1 each IH DAILY #1 blst.w.dev 01/21/17 Unknown Rx Ellipta 200-25 Mcg INH] Folic Acid [Folvite] 1 mg PO QDAY #30 tablet 01/21/17 Unknown Rx Gabapentin [Neurontin] 300 mg PO TID #90 capsule 01/21/17 Unknown Rx HYDROcodone/APAP 5-325 [[place] 1 each PO Q6H PRN #14 tablet 01/21/17 Unknown Rx 5-325 mg TAB] Hydrochlorothiazide [HCTZ] 25 mg PO QDAY #30 tablet 01/21/17 Unknown Rx Nicotine [Habitrol] 14 mg TD QDAY #30 patch 01/21/17 Unknown Rx Prednisone [predniSONE 10 mg 10 mg PO .TAPER #1 tab.ds.pk 01/21/17 Unknown Rx (6-Day Pack, 21 Tabs)] Thiamine [Vitamin B-1] 100 mg PO QDAY #30 tablet 01/21/17 Unknown Rx Tiotropium [place] [Spiriva] 18 mcg IH 4XD #1 cap.w.dev 01/21/17 Unknown Rx amLODIPine [Norvasc] 10 mg PO DAILY #30 tablet 01/21/17 Unknown Rx traZODone [Desyrel] 150 mg PO QHS #30 tablet 01/21/17 Unknown Rx ALBUTEROL Inhaler [ProAir HFA 1 puff IH Q4H PRN #1 inha 04/27/17 Unknown Rx Inhaler] ALBUTEROL NEB's [Proventil 0.083% 2.5 mg IH TID PRN #90 neb 04/27/17 Unknown Rx NEBS] predniSONE [Deltasone] 20 mg PO QDAY #6 tab 04/27/17 Unknown Rx ALBUTEROL Inhaler [Proair] 2 puff IH QID PRN #1 inhalation 05/13/17 Unknown Rx Azithromycin [Zithromax Z-SERGE] 0 mg PO DAILY #6 tab 05/13/17 Unknown Rx HYDROcodone/APAP 5-325 [[place] 1 - 2 each PO Q6HR PRN #10 tablet 05/13/17 Unknown Rx 5/325] Ibuprofen [Motrin 800 MG tab] 800 mg PO Q8HR PRN #20 tablet 05/13/17 Unknown Rx Prednisone [predniSONE 10 mg 10 mg PO .TAPER #1 tab.ds.pk 05/13/17 Unknown Rx (6-Day Pack, 21 Tabs)] Allergies Allergy/AdvReac Type Severity Reaction Status Date / Time codeine Allergy Itching Verified 12/17/16 16:09 ED Review of Systems ROS: Stated complaint: CHEST PAIN Other details as noted in HPI Comment: All other systems reviewed and negative Constitutional: weakness Respiratory: cough, shortness of breath Cardiovascular: chest pain ED Past Medical Hx - Past Medical History Previous Medical History?: Yes Hx Congestive Heart Failure: Yes Hx Psychiatric Treatment: Yes (insomnia) Hx COPD: Yes (2-3L per [place]) - Surgical History Past Surgical History?: Yes Additional Surgical History: back surgery with radiating pain, herniorrhaphy, cardiac catheterization - Social History Smoking Status: Current Every Day Smoker Substance Use Type: Alcohol - Medications Home Medications: Home Medications Medication Instructions Recorded Confirmed Last Taken Type Albuterol Sulfate [Ventolin HFA] 2 puff IH Q4H PRN #1 hfa.aer.ad 01/21/17 Unknown Rx Duloxetine HCl [Cymbalta] 60 mg PO BID #60 capsule. 01/21/17 Unknown Rx Fluticasone/Vilanterol [Breo 1 each IH DAILY #1 blst.w.dev 01/21/17 Unknown Rx Ellipta 200-25 Mcg INH] Folic Acid [Folvite] 1 mg PO QDAY #30 tablet 01/21/17 Unknown Rx Gabapentin [Neurontin] 300 mg PO TID #90 capsule 01/21/17 Unknown Rx HYDROcodone/APAP 5-325 [[place] 1 each PO Q6H PRN #14 tablet 01/21/17 Unknown Rx 5-325 mg TAB] Hydrochlorothiazide [HCTZ] 25 mg PO QDAY #30 tablet 01/21/17 Unknown Rx Nicotine [Habitrol] 14 mg TD QDAY #30 patch 01/21/17 Unknown Rx Prednisone [predniSONE 10 mg 10 mg PO .TAPER #1 tab.ds.pk 01/21/17 Unknown Rx (6-Day Pack, 21 Tabs)] Thiamine [Vitamin B-1] 100 mg PO QDAY #30 tablet 01/21/17 Unknown Rx Tiotropium [place] [Spiriva] 18 mcg IH 4XD #1 cap.w.dev 01/21/17 Unknown Rx amLODIPine [Norvasc] 10 mg PO DAILY #30 tablet 01/21/17 Unknown Rx traZODone [Desyrel] 150 mg PO QHS #30 tablet 01/21/17 Unknown Rx ALBUTEROL Inhaler [ProAir HFA 1 puff IH Q4H PRN #1 inha 04/27/17 Unknown Rx Inhaler] ALBUTEROL NEB's [Proventil 0.083% 2.5 mg IH TID PRN #90 neb 04/27/17 Unknown Rx NEBS] predniSONE [Deltasone] 20 mg PO QDAY #6 tab 04/27/17 Unknown Rx ALBUTEROL Inhaler [Proair] 2 puff IH QID PRN #1 inhalation 05/13/17 Unknown Rx Azithromycin [Zithromax Z-SERGE] 0 mg PO DAILY #6 tab 05/13/17 Unknown Rx HYDROcodone/APAP 5-325 [[place] 1 - 2 each PO Q6HR PRN #10 tablet 05/13/17 Unknown Rx 5/325] Ibuprofen [Motrin 800 MG tab] 800 mg PO Q8HR PRN #20 tablet 05/13/17 Unknown Rx Prednisone [predniSONE 10 mg 10 mg PO .TAPER #1 tab.ds.pk 05/13/17 Unknown Rx (6-Day Pack, 21 Tabs)] ED Physical Exam - General Limitations: No Limitations General appearance: alert, in no apparent distress - Head Head exam: Present: atraumatic, normocephalic - Eye Eye exam: Present: normal appearance - ENT ENT exam: Present: mucous membranes moist - Neck Neck exam: Present: normal inspection - Respiratory Respiratory exam: Present: normal lung sounds bilaterally, decreased breath sounds. Absent: respiratory distress - Cardiovascular Cardiovascular Exam: Present: regular rate, normal rhythm, tachycardia. Absent : systolic murmur, diastolic murmur, rubs, gallop - GI/Abdominal GI/Abdominal exam: Present: soft, normal bowel sounds. Absent: tenderness - Rectal Rectal exam: Present: deferred - Extremities Exam Extremities exam: Present: normal inspection - Back Exam Back exam: Present: normal inspection - Neurological Exam Neurological exam: Present: alert, oriented X3 - Psychiatric Psychiatric exam: Present: normal affect, normal mood - Skin Skin exam: Present: warm, dry, intact, normal color. Absent: rash ED Course Vital Signs 09/17/17 09/17/17 09/17/17 18:18 19:03 21:22 Temperature 99.4 F Pulse Rate 101 H Pulse Rate [ 81 Posterior] Respiratory 26 H 26 H Rate Respiratory 16 Rate [Posterior ] Blood Pressure 125/87 O2 Sat by Pulse 98 98 Oximetry 09/17/17 21:23 Temperature Pulse Rate Pulse Rate [ 89 Posterior] Respiratory Rate Respiratory 29 H Rate [Posterior ] Blood Pressure O2 Sat by Pulse Oximetry ED Medical Decision Making - Lab Data Result diagrams: 09/17/17 18:33 09/17/17 18:33 - EKG Data -: EKG Interpreted by [place] EKG shows normal: sinus rhythm, intervals, QRS complexes, ST-T waves Rate: normal - EKG Data Interpretation: no acute changes - Radiology Data Radiology results: report reviewed, image reviewed - Medical Decision Making 67-year-old male with past medical history of COPD, hypertension that presents to the ER with chest pain. Vital signs significant for tachycardia of 101. Patient is in mild respiratory distress. He has diminished breath sounds bilaterally. He was given breathing treatments, which improved his breathing and chest pain. EKG is nonischemic. Lab work is unremarkable. Patient is still endorsing chest pain. Due to the fact that he is moderate risk, he will be admitted for further management. Patient was given aspirin from EMS. I did not give him antibiotics for his COPD since he does not describe a sputum change. Chest x-ray shows no focal process. Critical care attestation.: If time is entered above; I have spent that time in minutes in the direct care of this critically ill patient, excluding procedure time. ED Disposition Clinical Impression: COPD exacerbation, Chest pain Disposition: OP ADMIT IP TO THIS HOSP Is pt being admited?: Yes Does the pt Need Aspirin: No Condition: Stable Instructions: Chest Pain (ED) Referrals: PRIMARY CARE, [Primary Care Provider] - 3-5 Days
[2017-09-17] MEDS ORDERED: HABITROL TD ONE (23:00)
--- NOTE | 2017-09-17 23:01 | History and Physical Report ---
History of Present Illness Date of examination: 09/17/17 History of present illness: 67-year-old man with a history of hypertension, COPD, CHF, emergency room with complaints of shortness of breath, wheezing and cough productive of yellow phlegm. Also complains that he felt weak. He has been using his nebulizer treatments without any significant improvement Review of systems Constitutional: no weight loss, chills, fever Ears, eyes, nose, mouth and throat: no nasal congestion, no nasal discharge, no sinus pressure, no vision change, no red eye. Neck: No neck pain or rigidity. Cardiovascular: no chest pain, palpitations Respiratory: +cough, shortness of breath Gastrointestinal: no abdominal pain hematochezia Genitourinary : no frequency , no hematuria Musculoskeletal: no joint swelling or muscle ache Integumentary: no rash, no pruritis Neurological: no parathesias, no numbness, no focal weakness Endocrine: no cold or heat intolerance, no polyuria or polydipsia Hematologic/Lymphatic: no easy bruising, no easy bleeding, no gland swelling Allergic/Immunologic: no urticaria, no angioedema. PAST MEDICAL HISTORY:hypertension, COPD, CHF PAST SURGICAL HISTORY: Back surgery, hernia repair SOCIAL HISTORY: No drugs, smoke one pack daily, + alcohol ISTORY: Hypertension Medications and Allergies Allergies Allergy/AdvReac Type Severity Reaction Status Date / Time codeine Allergy Itching Verified 12/17/16 16:09 Home Medications Medication Instructions Recorded Confirmed Last Taken Type Albuterol Sulfate [Ventolin HFA] 2 puff IH Q4H PRN #1 hfa.aer.ad 01/21/17 Unknown Rx Duloxetine HCl [Cymbalta] 60 mg PO BID #60 capsule. 01/21/17 09/18/17 Unknown Rx Folic Acid [Folvite] 1 mg PO QDAY #30 tablet 01/21/17 09/18/17 04/01/17 Rx Gabapentin [Neurontin] 300 mg PO TID #90 capsule 01/21/17 09/18/17 02/26/17 Rx HYDROcodone/APAP 5-325 [[place] 1 each PO Q6H PRN #14 tablet 01/21/17 09/18/17 Unknown Rx 5-325 mg TAB] Hydrochlorothiazide [HCTZ] 25 mg PO QDAY #30 tablet 01/21/17 09/18/17 06/26/17 Rx Nicotine [Habitrol] 14 mg TD QDAY #30 patch 01/21/17 09/18/17 09/17/17 Rx Tiotropium [place] [Spiriva] 18 mcg IH 4XD #1 cap.w.dev 01/21/17 09/18/17 Unknown Rx amLODIPine [Norvasc] 10 mg PO DAILY #30 tablet 01/21/17 09/18/17 01/30/17 Rx ALBUTEROL NEB's [Proventil 0.083% 2.5 mg IH TID PRN #90 neb 04/27/17 09/18/17 Rx NEBS] predniSONE [Deltasone] 20 mg PO QDAY #6 tab 04/27/17 09/18/17 Unknown Rx ALBUTEROL Inhaler [Proair] 2 puff IH QID PRN #1 inhalation 05/13/17 09/18/1712/26 Rx HYDROcodone/APAP 5-325 [[place] 1 - 2 each PO Q6HR PRN #10 tablet 05/13/1709/15/17 Rx 5/325] Ibuprofen [Motrin 800 MG tab] 800 mg PO Q8HR PRN #20 tablet 05/13/17 09/18/17 Rx Exam - Physical Exam Narrative exam: Gen. appearance: Patient lying in bed, no apparent distress HEENT: Normocephalic, atraumatic, pupils equally round and reactive to light, extraocular movement intact, and no sclericterus,. No JVD or thyromegaly or nodule,neck supple, no carotid bruit ,mucous membranes moist, no exudate or erythema Heart: S1, S2, regular rate and rhythm Lungs: Wheezing bilaterally, breathing comfortable Abdomen: Positive bowel sounds, non-tender, nondistended, no organomegaly Extremity:no edema cyanosis, clubbing Skin: no rash, dry, warm Neuro: Oriented 3, cranial nerves II-12 intact, speech is fluent, motor and sensory intact - Constitutional Vitals: Temp Pulse Resp BP Pulse Ox 99.4 F 89 29 H 125/87 98 09/17/17 18:18 09/17/17 21:23 09/17/17 21:23 09/17/17 18:18 07/10/18 19:03 Results - Labs CBC & Chem 7: 09/19/17 04:40 09/19/17 04:40 Labs: Abnormal lab results 09/17/17 09/17/17 09/17/17 Range/Units 18:33 18:33 18:33 Plt Count 119 L (140-440) K/mm3 Lymph % (Auto) 10.3 L (13.4-35.0) % [place] % (Auto) 7.7 H (0.0-7.3) % Lymph # 0.9 L (1.2-5.4) K/mm3 Seg Neutrophils % 81.0 H (40.0-70.0) % VBG pH 7.455 H (7.320-7.420) Sodium 135 L (137-145) mmol/L Chloride 93.3 L (98-107) mmol/L BUN 8 L (9-20) mg/dL Creatinine 0.4 L (0.8-1.5) mg/dL AST 75 H (5-40) units/L - Imaging and Cardiology EKG: image reviewed Chest x-ray: image reviewed Assessment and Plan Assessment COPD exacerbation Hypertension CHF, stable Thrombocytopenia Plan Admit to medicine Start high-dose steroids, nebulizer treatments Continue Procrit outpatient medications DVT prophylaxis
[2017-09-18] MEDS ORDERED: SODIUM CHLORIDE FLUSH SYRINGE 10 ML IV PRN (00:35)
[2017-09-18] MEDS ORDERED: ZOFRAN IV PRN (00:35)
[2017-09-18] MEDS: PERCOCET 5/325 PO PRN ×4 (01:15→21:49)
[2017-09-18 05:25] LABS: Hematocrit 45.6 % (35.5-45.6); Hemoglobin 15.2 gm/dl (11.8-15.2); Mean Corpuscular HGB Conc 34 % (32-34); Mean Corpuscular Hemoglobin 31 pg (28-32); Mean Corpuscular Volume 91 fl (84-94); Platelet Count 145 K/mm3 (140-440); Red Cell Distribution Width 13.8 % (13.2-15.2)
[2017-09-18 05:44] LABS: BUN/Creatinine Ratio 23; Blood Urea Nitrogen 7 mg/dL (9-20); Calcium 8.6 mg/dL (8.4-10.2); Hemolysis Index 20
[2017-09-18 06:19] LABS: Basophils % (Manual) 0 % (0.0-1.8); Eosinophils % (Manual) 0 % (0.0-4.3); Total Cells Counted 100
[2017-09-18 06:20] LABS: Platelet Estimate Consistent w Auto
[2017-09-18] MEDS: NEURONTIN PO SCH ×3 (08:04→21:49)
[2017-09-18] MEDS: DUONEB *Not for PRN Use IH SCH ×4 (08:14→19:30)
[2017-09-18 08:38] LABS: Bilirubin,Urine NEG (Negative); Blood,Urine NEG (Negative); Color,Urine Yellow (Yellow); Mucus,Urine FEW /HPF; Protein,Urine <15 mg/dL mg/dL (Negative); Urobilinogen,Urine < 2.0 mg/dL (<2.0); WBC,Urine < 1.0 /HPF (0.0-6.0)
--- NOTE | 2017-09-18 09:28 | Progress Note ---
Hospitalist Physical - Constitutional Vitals: Temp Pulse Resp BP Pulse Ox 98.4 F 92 H 20 154/93 96 09/18/17 00:00 09/18/17 08:41 09/18/17 08:41 09/18/17 00:00 09/18/17 08:23 Results - Labs CBC & Chem 7: 09/18/17 04:53 09/18/17 04:53 Labs: Laboratory Last Values WBC 4.9 K/mm3 (4.5-11.0) 09/18/17 04:53 RBC 5.00 M/mm3 (3.65-5.03) 09/18/17 04:53 Hgb 15.2 gm/dl (11.8-15.2) 09/18/17 04:53 Hct 45.6 % (35.5-45.6) 09/18/17 04:53 MCV 91 fl (84-94) 09/18/17 04:53 MCH 31 pg (28-32) 09/18/17 04:53 MCHC 34 % (32-34) 09/18/17 04:53 RDW 13.8 % (13.2-15.2) 09/18/17 04:53 Plt Count 145 K/mm3 (140-440) 09/18/17 04:53 Lymph % (Auto) 10.3 % (13.4-35.0) L 09/17/17 18:33 [place] % (Auto) 7.7 % (0.0-7.3) H 09/17/17 18:33 Eos % (Auto) 0.3 % (0.0-4.3) 09/17/17 18:33 Baso % (Auto) 0.7 % (0.0-1.8) 09/17/17 18:33 Lymph # 0.9 K/mm3 (1.2-5.4) L 09/17/17 18:33 [place] # 0.7 K/mm3 (0.0-0.8) 09/17/17 18:33 Eos # 0.0 K/mm3 (0.0-0.4) 09/17/17 18:33 Baso # 0.1 K/mm3 (0.0-0.1) 09/17/17 18:33 Add Manual Diff Complete 09/18/17 04:53 Total Counted 100 09/18/17 04:53 Seg Neutrophils % Collar B[employer] Jumpb[employer] 09/18/17 04:53 Seg Neuts % (Manual) 94.0 % (40.0-70.0) H 09/18/17 04:53 Band Neutrophils % 0 % 09/18/17 04:53 Lymphocytes % (Manual) 5.0 % (13.4-35.0) L 09/18/17 04:53 Reactive Lymphs % (Man) 0 % 09/18/17 04:53 Monocytes % (Manual) 1.0 % (0.0-7.3) 09/18/17 04:53 Eosinophils % (Manual) 0 % (0.0-4.3) 09/18/17 04:53 Basophils % (Manual) 0 % (0.0-1.8) 09/18/17 04:53 Metamyelocytes % 0 % 09/18/17 04:53 Myelocytes % 0 % 09/18/17 04:53 Promyelocytes % 0 % 09/18/17 04:53 Blast Cells % 0 % 09/18/17 04:53 Nucleated RBC % Not Reportable 09/18/17 04:53 Seg Neutrophils # 7.2 K/mm3 (1.8-7.7) 09/17/17 18:33 Seg Neutrophils # Man 4.6 K/mm3 (1.8-7.7) 09/18/17 04:53 Band Neutrophils # 0.0 K/mm3 09/18/17 04:53 Lymphocytes # (Manual) 0.2 K/mm3 (1.2-5.4) L 09/18/17 04:53 Abs React Lymphs (Man) 0.0 K/mm3 09/18/17 04:53 Monocytes # (Manual) 0.0 K/mm3 (0.0-0.8) 09/18/17 04:53 Eosinophils # (Manual) 0.0 K/mm3 (0.0-0.4) 09/18/17 04:53 Basophils # (Manual) 0.0 K/mm3 (0.0-0.1) 09/18/17 04:53 Metamyelocytes # 0.0 K/mm3 09/18/17 04:53 Myelocytes # 0.0 K/mm3 09/18/17 04:53 Promyelocytes # 0.0 K/mm3 09/18/17 04:53 Blast Cells # 0.0 K/mm3 09/18/17 04:53 WBC Morphology Not Reportable 09/18/17 04:53 Hypersegmented Neuts Not Reportable 09/18/17 04:53 Hyposegmented Neuts Not Reportable 09/18/17 04:53 Hypogranular Neuts Not Reportable 09/18/17 04:53 Smudge Cells Not Reportable 09/18/17 04:53 Toxic Granulation Not Reportable 09/18/17 04:53 Toxic Vacuolation Not Reportable 09/18/17 04:53 Dohle Bodies Not Reportable 09/18/17 04:53 Pelger-Huet Anomaly Not Reportable 09/18/17 04:53 Melinda Rods Not Reportable 09/18/17 04:53 Platelet Estimate Consistent w auto 09/18/17 04:53 Clumped Platelets Not Reportable 09/18/17 04:53 Plt Clumps, EDTA Not Reportable 09/18/17 04:53 Large Platelets Not Reportable 09/18/17 04:53 Giant Platelets Not Reportable 09/18/17 04:53 Platelet Satelliting Not Reportable 09/18/17 04:53 Plt Morphology Comment Not Reportable 09/18/17 04:53 RBC Morphology Not Reportable 09/18/17 04:53 Dimorphic RBCs Not Reportable 09/18/17 04:53 Polychromasia Not Reportable 09/18/17 04:53 Hypochromasia Not Reportable 09/18/17 04:53 Poikilocytosis Not Reportable 09/18/17 04:53 Anisocytosis Not Reportable 09/18/17 04:53 Microcytosis Not Reportable 09/18/17 04:53 Macrocytosis Not Reportable 09/18/17 04:53 Spherocytes Not Reportable 09/18/17 04:53 Pappenheimer Bodies Not Reportable 09/18/17 04:53 Sickle Cells Not Reportable 09/18/17 04:53 Target Cells Not Reportable 09/18/17 04:53 Tear Drop Cells Not Reportable 09/18/17 04:53 Ovalocytes Not Reportable 09/18/17 04:53 Helmet Cells Not Reportable 09/18/17 04:53 Mar[place] Bodies Not Reportable 09/18/17 04:53 [place] Rings Not Reportable 09/18/17 04:53 [place] Cells Not Reportable 09/18/17 04:53 Bite Cells Not Reportable 09/18/17 04:53 Crenated Cell Not Reportable 09/18/17 04:53 Elliptocytes Not Reportable 09/18/17 04:53 Acanthocytes (Spur) Not Reportable 09/18/17 04:53 Rouleaux Not Reportable 09/18/17 04:53 Hemoglobin C Crystals Not Reportable 09/18/17 04:53 Schistocytes Not Reportable 09/18/17 04:53 Malaria parasites Not Reportable 09/18/17 04:53 Olvin Bodies Not Reportable 09/18/17 04:53 Hem Pathologist Commnt No 09/18/17 04:53 PT 12.9 Sec. (12.2-14.9) 09/17/17 18:33 INR 0.93 (0.87-1.13) 09/17/17 18:33 VBG pH 7.455 (7.320-7.420) H 09/17/17 18:33 Sodium 134 mmol/L (137-145) L 09/18/17 04:53 Potassium 4.3 mmol/L (3.6-5.0) 09/18/17 04:53 Chloride 94.6 mmol/L (98-107) L 09/18/17 04:53 Carbon Dioxide 26 mmol/L (22-30) 09/18/17 04:53 Anion Gap 18 mmol/L 09/18/17 04:53 BUN 7 mg/dL (9-20) L 09/18/17 04:53 Creatinine 0.3 mg/dL (0.8-1.5) L 09/18/17 04:53 Estimated GFR > 60 ml/min 09/18/17 04:53 BUN/Creatinine Ratio 23 % 09/18/17 04:53 Glucose 181 mg/dL (75-100) H 09/18/17 04:53 Lactic Acid 1.10 mmol/L (0.7-2.0) 09/17/17 20:43 Calcium 8.6 mg/dL (8.4-10.2) 09/18/17 04:53 Total Bilirubin 0.90 mg/dL (0.1-1.2) 09/17/17 18:33 AST 75 units/L (5-40) H 09/17/17 18:33 ALT 47 units/L (7-56) 09/17/17 18:33 Alkaline Phosphatase 44 units/L (35-129) 09/17/17 18:33 Troponin T < 0.010 ng/mL (0.00-0.029) 09/18/17 00:38 Total Protein 7.1 g/dL (6.3-8.2) 09/17/17 18:33 Albumin 3.9 g/dL (3.9-5) 09/17/17 18:33 Albumin/Globulin Ratio 1.2 % 09/17/17 18:33 Urine Color Yellow (Yellow) 09/18/17 Unknown Urine Turbidity Clear (Clear) 09/18/17 Unknown Urine pH 8.0 (5.0-7.0) H 09/18/17 Unknown Ur Specific [place] 1.013 (1.003-1.030) 09/18/17 Unknown Urine Protein <15 mg/dl mg/dL (Negative) 09/18/17 Unknown Urine Glucose (UA) Neg mg/dL (Negative) 09/18/17 Unknown Urine Ketones 20 mg/dL (Negative) 09/18/17 Unknown Urine Blood Neg (Negative) 09/18/17 Unknown Urine Nitrite Neg (Negative) 09/18/17 Unknown Urine Bilirubin Neg (Negative) 09/18/17 Unknown Urine Urobilinogen < 2.0 mg/dL (<2.0) 09/18/17 Unknown Ur Leukocyte Esterase Neg (Negative) 09/18/17 Unknown Urine WBC (Auto) < 1.0 /HPF (0.0-6.0) 09/18/17 Unknown Urine RBC (Auto) 1.0 /HPF (0.0-6.0) 09/18/17 Unknown Urine Mucus Few /HPF 09/18/17 Unknown
[2017-09-18] MEDS ORDERED: NON-FORMULARY (Duloxetine Hcl [Cymbalta] 60 MG) PO SCH (10:00)
[2017-09-18] MEDS ORDERED: LOVENOX SUB-Q SCH ×2 (10:00)
[2017-09-18] MEDS: VITAMIN B-1 PO SCH (10:35)
[2017-09-18] MEDS: SODIUM CHLORIDE FLUSH SYRINGE 10 ML IV SCH ×2 (10:35→21:51)
[2017-09-18] MEDS: PEPCID PO SCH ×2 (10:36→21:49)
[2017-09-18] MEDS: CYMBALTA PO SCH ×2 (10:36→21:48)
[2017-09-18] MEDS: FOLVITE PO SCH (10:36)
[2017-09-18] MEDS: NORVASC PO SCH (10:38)
--- NOTE | 2017-09-18 11:06 | Progress Note ---
Assessment and Plan Assessment and plan: Acute COPD exacerbation. Continue IV steroids and taper. Continue nebulizer treatments. Acute bronchitis. We will add IV antibiotics. Hypertension. Continue hypertensive medications. CHF. Compensated. Thrombocytopenia. Follow-up CBC. History Interval history: No new issues overnight. Hospitalist Physical - Constitutional Vitals: Temp Pulse Resp BP Pulse Ox 98.8 F 73 20 147/85 96 09/18/17 07:36 09/18/17 10:38 09/18/17 08:41 09/18/17 10:38 09/18/17 08:23 General appearance: Present: no acute distress, well-nourished - EENT Eyes: Present: PERRL, EOM intact ENT: hearing intact, clear oral mucosa, dentition normal - Neck Neck: Present: supple, normal ROM - Respiratory Respiratory effort: normal Respiratory: bilateral: CTA - Cardiovascular Rhythm: regular Heart Sounds: Present: S1 & S2. Absent: gallop, rub - Extremities Extremities: no ischemia, No edema, Full ROM - Abdominal General gastrointestinal: soft, non-tender, non-distended, normal bowel sounds - Integumentary Integumentary: Present: clear, warm, dry - Neurologic Neurologic: CNII-XII intact, moves all extremities Results - Labs CBC & Chem 7: 09/18/17 04:53 09/18/17 04:53 Labs: Laboratory Last Values WBC 4.9 K/mm3 (4.5-11.0) 09/18/17 04:53 RBC 5.00 M/mm3 (3.65-5.03) 09/18/17 04:53 Hgb 15.2 gm/dl (11.8-15.2) 09/18/17 04:53 Hct 45.6 % (35.5-45.6) 09/18/17 04:53 MCV 91 fl (84-94) 09/18/17 04:53 MCH 31 pg (28-32) 09/18/17 04:53 MCHC 34 % (32-34) 09/18/17 04:53 RDW 13.8 % (13.2-15.2) 09/18/17 04:53 Plt Count 145 K/mm3 (140-440) 09/18/17 04:53 Lymph % (Auto) 10.3 % (13.4-35.0) L 09/17/17 18:33 [place] % (Auto) 7.7 % (0.0-7.3) H 09/17/17 18:33 Eos % (Auto) 0.3 % (0.0-4.3) 09/17/17 18:33 Baso % (Auto) 0.7 % (0.0-1.8) 09/17/17 18:33 Lymph # 0.9 K/mm3 (1.2-5.4) L 09/17/17 18:33 [place] # 0.7 K/mm3 (0.0-0.8) 09/17/17 18:33 Eos # 0.0 K/mm3 (0.0-0.4) 09/17/17 18:33 Baso # 0.1 K/mm3 (0.0-0.1) 09/17/17 18:33 Add Manual Diff Complete 09/18/17 04:53 Total Counted 100 09/18/17 04:53 Seg Neutrophils % Service [employer] 09/18/17 04:53 Seg Neuts % (Manual) 94.0 % (40.0-70.0) H 09/18/17 04:53 Band Neutrophils % 0 % 09/18/17 04:53 Lymphocytes % (Manual) 5.0 % (13.4-35.0) L 09/18/17 04:53 Reactive Lymphs % (Man) 0 % 09/18/17 04:53 Monocytes % (Manual) 1.0 % (0.0-7.3) 09/18/17 04:53 Eosinophils % (Manual) 0 % (0.0-4.3) 09/18/17 04:53 Basophils % (Manual) 0 % (0.0-1.8) 09/18/17 04:53 Metamyelocytes % 0 % 09/18/17 04:53 Myelocytes % 0 % 09/18/17 04:53 Promyelocytes % 0 % 09/18/17 04:53 Blast Cells % 0 % 09/18/17 04:53 Nucleated RBC % Not Reportable 09/18/17 04:53 Seg Neutrophils # 7.2 K/mm3 (1.8-7.7) 09/17/17 18:33 Seg Neutrophils # Man 4.6 K/mm3 (1.8-7.7) 09/18/17 04:53 Band Neutrophils # 0.0 K/mm3 09/18/17 04:53 Lymphocytes # (Manual) 0.2 K/mm3 (1.2-5.4) L 09/18/17 04:53 Abs React Lymphs (Man) 0.0 K/mm3 09/18/17 04:53 Monocytes # (Manual) 0.0 K/mm3 (0.0-0.8) 09/18/17 04:53 Eosinophils # (Manual) 0.0 K/mm3 (0.0-0.4) 09/18/17 04:53 Basophils # (Manual) 0.0 K/mm3 (0.0-0.1) 09/18/17 04:53 Metamyelocytes # 0.0 K/mm3 09/18/17 04:53 Myelocytes # 0.0 K/mm3 09/18/17 04:53 Promyelocytes # 0.0 K/mm3 09/18/17 04:53 Blast Cells # 0.0 K/mm3 09/18/17 04:53 WBC Morphology Not Reportable 09/18/17 04:53 Hypersegmented Neuts Not Reportable 09/18/17 04:53 Hyposegmented Neuts Not Reportable 09/18/17 04:53 Hypogranular Neuts Not Reportable 09/18/17 04:53 Smudge Cells Not Reportable 09/18/17 04:53 Toxic Granulation Not Reportable 09/18/17 04:53 Toxic Vacuolation Not Reportable 09/18/17 04:53 Dohle Bodies Not Reportable 09/18/17 04:53 Pelger-Huet Anomaly Not Reportable 09/18/17 04:53 Melinda Rods Not Reportable 09/18/17 04:53 Platelet Estimate Consistent w auto 09/18/17 04:53 Clumped Platelets Not Reportable 09/18/17 04:53 Plt Clumps, EDTA Not Reportable 09/18/17 04:53 Large Platelets Not Reportable 09/18/17 04:53 Giant Platelets Not Reportable 09/18/17 04:53 Platelet Satelliting Not Reportable 09/18/17 04:53 Plt Morphology Comment Not Reportable 09/18/17 04:53 RBC Morphology Not Reportable 09/18/17 04:53 Dimorphic RBCs Not Reportable 09/18/17 04:53 Polychromasia Not Reportable 09/18/17 04:53 Hypochromasia Not Reportable 09/18/17 04:53 Poikilocytosis Not Reportable 09/18/17 04:53 Anisocytosis Not Reportable 09/18/17 04:53 Microcytosis Not Reportable 09/18/17 04:53 Macrocytosis Not Reportable 09/18/17 04:53 Spherocytes Not Reportable 09/18/17 04:53 Pappenheimer Bodies Not Reportable 09/18/17 04:53 Sickle Cells Not Reportable 09/18/17 04:53 Target Cells Not Reportable 09/18/17 04:53 Tear Drop Cells Not Reportable 09/18/17 04:53 Ovalocytes Not Reportable 09/18/17 04:53 Helmet Cells Not Reportable 09/18/17 04:53 [place] Bodies Not Reportable 09/18/17 04:53 [place] Rings Not Reportable 09/18/17 04:53 [place] Cells Not Reportable 09/18/17 04:53 Bite Cells Not Reportable 09/18/17 04:53 Crenated Cell Not Reportable 09/18/17 04:53 Elliptocytes Not Reportable 09/18/17 04:53 Acanthocytes (Spur) Not Reportable 09/18/17 04:53 Rouleaux Not Reportable 09/18/17 04:53 Hemoglobin C Crystals Not Reportable 09/18/17 04:53 Schistocytes Not Reportable 09/18/17 04:53 Malaria parasites Not Reportable 09/18/17 04:53 Olvin Bodies Not Reportable 09/18/17 04:53 Hem Pathologist Commnt No 09/18/17 04:53 PT 12.9 Sec. (12.2-14.9) 09/17/17 18:33 INR 0.93 (0.87-1.13) 09/17/17 18:33 VBG pH 7.455 (7.320-7.420) H 09/17/17 18:33 Sodium 134 mmol/L (137-145) L 09/18/17 04:53 Potassium 4.3 mmol/L (3.6-5.0) 09/18/17 04:53 Chloride 94.6 mmol/L (98-107) L 09/18/17 04:53 Carbon Dioxide 26 mmol/L (22-30) 09/18/17 04:53 Anion Gap 18 mmol/L 09/18/17 04:53 BUN 7 mg/dL (9-20) L 09/18/17 04:53 Creatinine 0.3 mg/dL (0.8-1.5) L 09/18/17 04:53 Estimated GFR > 60 ml/min 09/18/17 04:53 BUN/Creatinine Ratio 23 % 09/18/17 04:53 Glucose 181 mg/dL (75-100) H 09/18/17 04:53 Lactic Acid 1.10 mmol/L (0.7-2.0) 09/17/17 20:43 Calcium 8.6 mg/dL (8.4-10.2) 09/18/17 04:53 Total Bilirubin 0.90 mg/dL (0.1-1.2) 09/17/17 18:33 AST 75 units/L (5-40) H 09/17/17 18:33 ALT 47 units/L (7-56) 09/17/17 18:33 Alkaline Phosphatase 44 units/L (35-129) 09/17/17 18:33 Troponin T < 0.010 ng/mL (0.00-0.029) 09/18/17 00:38 Total Protein 7.1 g/dL (6.3-8.2) 09/17/17 18:33 Albumin 3.9 g/dL (3.9-5) 09/17/17 18:33 Albumin/Globulin Ratio 1.2 % 09/17/17 18:33 Urine Color Yellow (Yellow) 09/18/17 Unknown Urine Turbidity Clear (Clear) 09/18/17 Unknown Urine pH 8.0 (5.0-7.0) H 09/18/17 Unknown Ur Specific [place] 1.013 (1.003-1.030) 09/18/17 Unknown Urine Protein <15 mg/dl mg/dL (Negative) 09/18/17 Unknown Urine Glucose (UA) Neg mg/dL (Negative) 09/18/17 Unknown Urine Ketones 20 mg/dL (Negative) 09/18/17 Unknown Urine Blood Neg (Negative) 09/18/17 Unknown Urine Nitrite Neg (Negative) 09/18/17 Unknown Urine Bilirubin Neg (Negative) 09/18/17 Unknown Urine Urobilinogen < 2.0 mg/dL (<2.0) 09/18/17 Unknown Ur Leukocyte Esterase Neg (Negative) 09/18/17 Unknown Urine WBC (Auto) < 1.0 /HPF (0.0-6.0) 09/18/17 Unknown Urine RBC (Auto) 1.0 /HPF (0.0-6.0) 09/18/17 Unknown Urine Mucus Few /HPF 09/18/17 Unknown
[2017-09-18] MEDS: LEVAQUIN 500MG/100ML 500 MG/100 ML BAG IV SCH (13:00)
--- NOTE | 2017-09-18 13:52 | Cat Scan Report ---
FINAL REPORT EXAM: CT ABDOMEN WO CON HISTORY: abdominal pain TECHNIQUE: CT of the abdomen without IV contrast. Coronal and sagittal reconstructed imaging provided. PRIORS: None currently available. FINDINGS: ABDOMEN: Mild emphysema. Minimal scarring both lung bases. Calcified granuloma in the right lower lobe. Fatty liver. No suspicious lesions. Calcified granulomas in the liver and spleen. Spleen is unremarkable. Mildly distended gallbladder without wall thickening. No obvious stones. Pancreas and adrenals are unremarkable. Kidneys: Cyst with mural calcification in the left kidney measures 2.6 cm. Kidneys do not demonstrate any hydronephrosis or nephroureteral stones. Stomach may be thick wall versus incomplete distention. Proximal small bowel loops also appear mildly thick walled. The rest of the small bowel loops demonstrate a few air-fluid levels without wall thickening. Mild stool in the colon without obvious wall thickening. Bowel loops are partially imaged. No obstructive pattern. IVC is unremarkable. Moderate aortic atherosclerotic disease. No aneurysm. No periaortic or retroperitoneal mass or adenopathy. Bones: No suspicious osseous lesions on this limited examination of the skeleton. Metastatic disease better evaluated with bone scan. Degenerative changes are in the spine. IMPRESSION: Possible thickening of the stomach and proximal small bowel loops. Findings may represent gastroenteritis. Differential diagnosis would include incomplete distention. Fatty liver. Distended gallbladder without CT evidence for cholecystitis. Mild emphysema and scarring both lungs.
[2017-09-18] MEDS: AMBIEN PO PRN (21:49)
[2017-09-19] MEDS: DUONEB *Not for PRN Use IH SCH ×4 (03:37→20:07)
[2017-09-19 05:03] LABS: Hematocrit 44.3 % (35.5-45.6); Hemoglobin 14.7 gm/dl (11.8-15.2); Mean Corpuscular HGB Conc 33 % (32-34); Mean Corpuscular Hemoglobin 30 pg (28-32); Mean Corpuscular Volume 91 fl (84-94); Platelet Count 146 K/mm3 (140-440); Red Blood Count 4.88 M/mm3 (3.65-5.03); Red Cell Distribution Width 13.6 % (13.2-15.2)
[2017-09-19 05:21] LABS: BUN/Creatinine Ratio 23; Blood Urea Nitrogen 9 mg/dL (9-20); Calcium 8.9 mg/dL (8.4-10.2); Hemolysis Index 29
[2017-09-19] MEDS: PERCOCET 5/325 PO PRN ×2 (08:42→17:47)
[2017-09-19] MEDS: NEURONTIN PO SCH ×3 (08:43→21:42)
[2017-09-19 08:47] LABS: Basophils % (Manual) 0 % (0.0-1.8); Eosinophils % (Manual) 0 % (0.0-4.3); Total Cells Counted 100
[2017-09-19 08:48] LABS: Platelet Estimate Cons; RBC Morphology Normal
[2017-09-19] MEDS: LEVAQUIN 500MG/100ML 500 MG/100 ML BAG IV SCH (10:11)
[2017-09-19] MEDS: FOLVITE PO SCH (10:11)
[2017-09-19] MEDS: VITAMIN B-1 PO SCH (10:11)
[2017-09-19] MEDS: HABITROL TD SCH (10:11)
[2017-09-19] MEDS: CYMBALTA PO SCH ×2 (10:11→21:43)
[2017-09-19] MEDS: PEPCID PO SCH ×2 (10:11→21:43)
[2017-09-19] MEDS: SODIUM CHLORIDE FLUSH SYRINGE 10 ML IV SCH ×2 (10:12→21:44)
[2017-09-19] MEDS: NORVASC PO SCH (10:13)
[2017-09-19] MEDS ORDERED: CEPHULAC PO PRN (10:29)
--- NOTE | 2017-09-19 10:29 | Progress Note ---
Assessment and Plan Assessment and plan: Acute COPD exacerbation. Continue IV steroids and taper. Continue nebulizer treatments. Acute bronchitis. Continue IV antibiotics. Hypertension. Continue hypertensive medications. CHF. Compensated. Thrombocytopenia. Follow-up CBC. Constipation. Lactulose twice a day. Disposition. Anticipate discharge in a.m. History Interval history: No new issues overnight. Hospitalist Physical - Constitutional Vitals: Temp Pulse Resp BP Pulse Ox 98.3 F 83 18 144/79 99 09/19/17 07:52 09/19/17 10:13 09/19/17 09:13 09/19/17 10:13 09/19/17 09:13 General appearance: Present: no acute distress, well-nourished - EENT Eyes: Present: PERRL, EOM intact ENT: hearing intact, clear oral mucosa, dentition normal - Neck Neck: Present: supple, normal ROM - Respiratory Respiratory effort: normal Respiratory: bilateral: CTA - Cardiovascular Rhythm: regular Heart Sounds: Present: S1 & S2. Absent: gallop, rub - Extremities Extremities: no ischemia, No edema, Full ROM - Abdominal General gastrointestinal: soft, non-tender, non-distended, normal bowel sounds - Integumentary Integumentary: Present: clear, warm, dry - Neurologic Neurologic: CNII-XII intact, moves all extremities Results - Labs CBC & Chem 7: 09/19/17 04:40 09/19/17 04:40 Labs: Laboratory Last Values WBC 8.0 K/mm3 (4.5-11.0) 09/19/17 04:40 RBC 4.88 M/mm3 (3.65-5.03) 09/19/17 04:40 Hgb 14.7 gm/dl (11.8-15.2) 09/19/17 04:40 Hct 44.3 % (35.5-45.6) 09/19/17 04:40 MCV 91 fl (84-94) 09/19/17 04:40 MCH 30 pg (28-32) 09/19/17 04:40 MCHC 33 % (32-34) 09/19/17 04:40 RDW 13.6 % (13.2-15.2) 09/19/17 04:40 Plt Count 146 K/mm3 (140-440) 09/19/17 04:40 Lymph % (Auto) 10.3 % (13.4-35.0) L 09/17/17 18:33 [place] % (Auto) 7.7 % (0.0-7.3) H 09/17/17 18:33 Eos % (Auto) 0.3 % (0.0-4.3) 09/17/17 18:33 Baso % (Auto) 0.7 % (0.0-1.8) 09/17/17 18:33 Lymph # 0.9 K/mm3 (1.2-5.4) L 09/17/17 18:33 [place] # 0.7 K/mm3 (0.0-0.8) 09/17/17 18:33 Eos # 0.0 K/mm3 (0.0-0.4) 09/17/17 18:33 Baso # 0.1 K/mm3 (0.0-0.1) 09/17/17 18:33 Add Manual Diff Complete 09/19/17 04:40 Total Counted 100 09/19/17 04:40 Seg Neutrophils % Mast Maker 09/19/17 04:40 Seg Neuts % (Manual) 95.0 % (40.0-70.0) H 09/19/17 04:40 Band Neutrophils % 0 % 09/19/17 04:40 Lymphocytes % (Manual) 4.0 % (13.4-35.0) L 09/19/17 04:40 Reactive Lymphs % (Man) 0 % 09/19/17 04:40 Monocytes % (Manual) 1.0 % (0.0-7.3) 09/19/17 04:40 Eosinophils % (Manual) 0 % (0.0-4.3) 09/19/17 04:40 Basophils % (Manual) 0 % (0.0-1.8) 09/19/17 04:40 Metamyelocytes % 0 % 09/19/17 04:40 Myelocytes % 0 % 09/19/17 04:40 Promyelocytes % 0 % 09/19/17 04:40 Blast Cells % 0 % 09/19/17 04:40 Nucleated RBC % Not Reportable 09/19/17 04:40 Seg Neutrophils # 7.2 K/mm3 (1.8-7.7) 09/17/17 18:33 Seg Neutrophils # Man 7.6 K/mm3 (1.8-7.7) 09/19/17 04:40 Band Neutrophils # 0.0 K/mm3 09/19/17 04:40 Lymphocytes # (Manual) 0.3 K/mm3 (1.2-5.4) L 09/19/17 04:40 Abs React Lymphs (Man) 0.0 K/mm3 09/19/17 04:40 Monocytes # (Manual) 0.1 K/mm3 (0.0-0.8) 09/19/17 04:40 Eosinophils # (Manual) 0.0 K/mm3 (0.0-0.4) 09/19/17 04:40 Basophils # (Manual) 0.0 K/mm3 (0.0-0.1) 09/19/17 04:40 Metamyelocytes # 0.0 K/mm3 09/19/17 04:40 Myelocytes # 0.0 K/mm3 09/19/17 04:40 Promyelocytes # 0.0 K/mm3 09/19/17 04:40 Blast Cells # 0.0 K/mm3 09/19/17 04:40 WBC Morphology Not Reportable 09/19/17 04:40 Hypersegmented Neuts Not Reportable 09/19/17 04:40 Hyposegmented Neuts Not Reportable 09/19/17 04:40 Hypogranular Neuts Not Reportable 09/19/17 04:40 Smudge Cells Not Reportable 09/19/17 04:40 Toxic Granulation Not Reportable 09/19/17 04:40 Toxic Vacuolation Not Reportable 09/19/17 04:40 Dohle Bodies Not Reportable 09/19/17 04:40 Pelger-Huet Anomaly Not Reportable 09/19/17 04:40 Melinda Rods Not Reportable 09/19/17 04:40 Platelet Estimate Cons 09/19/17 04:40 Clumped Platelets Not Reportable 09/19/17 04:40 Plt Clumps, EDTA Not Reportable 09/19/17 04:40 Large Platelets Not Reportable 09/19/17 04:40 Giant Platelets Not Reportable 09/19/17 04:40 Platelet Satelliting Not Reportable 09/19/17 04:40 Plt Morphology Comment Not Reportable 09/19/17 04:40 RBC Morphology Normal 09/19/17 04:40 Dimorphic RBCs Not Reportable 09/19/17 04:40 Polychromasia Not Reportable 09/19/17 04:40 Hypochromasia Not Reportable 09/19/17 04:40 Poikilocytosis Not Reportable 09/19/17 04:40 Anisocytosis Not Reportable 09/19/17 04:40 Microcytosis Not Reportable 09/19/17 04:40 Macrocytosis Not Reportable 09/19/17 04:40 Spherocytes Not Reportable 09/19/17 04:40 Pappenheimer Bodies Not Reportable 09/19/17 04:40 Sickle Cells Not Reportable 09/19/17 04:40 Target Cells Not Reportable 09/19/17 04:40 Tear Drop Cells Not Reportable 09/19/17 04:40 Ovalocytes Not Reportable 09/19/17 04:40 Helmet Cells Not Reportable 09/19/17 04:40 [place] Bodies Not Reportable 09/19/17 04:40 [place] Rings Not Reportable 09/19/17 04:40 [place] Cells Not Reportable 09/19/17 04:40 Bite Cells Not Reportable 09/19/17 04:40 Crenated Cell Not Reportable 09/19/17 04:40 Elliptocytes Not Reportable 09/19/17 04:40 Acanthocytes (Spur) Not Reportable 09/19/17 04:40 Rouleaux Not Reportable 09/19/17 04:40 Hemoglobin C Crystals Not Reportable 09/19/17 04:40 Schistocytes Not Reportable 09/19/17 04:40 Malaria parasites Not Reportable 09/19/17 04:40 [place]vin Bodies Not Reportable 09/19/17 04:40 Hem Pathologist Commnt No 09/19/17 04:40 PT 12.9 Sec. (12.2-14.9) 09/17/17 18:33 INR 0.93 (0.87-1.13) 09/17/17 18:33 VBG pH 7.455 (7.320-7.420) H 09/17/17 18:33 Sodium 129 mmol/L (137-145) L 09/19/17 04:40 Potassium 4.5 mmol/L (3.6-5.0) 09/19/17 04:40 Chloride 88.8 mmol/L (98-107) L 09/19/17 04:40 Carbon Dioxide 27 mmol/L (22-30) 09/19/17 04:40 Anion Gap 18 mmol/L 09/19/17 04:40 BUN 9 mg/dL (9-20) 09/19/17 04:40 Creatinine 0.4 mg/dL (0.8-1.5) L 09/19/17 04:40 Estimated GFR > 60 ml/min 09/19/17 04:40 BUN/Creatinine Ratio 23 % 09/19/17 04:40 Glucose 208 mg/dL (75-100) H 09/19/17 04:40 Lactic Acid 1.10 mmol/L (0.7-2.0) 09/17/17 20:43 Calcium 8.9 mg/dL (8.4-10.2) 09/19/17 04:40 Total Bilirubin 0.90 mg/dL (0.1-1.2) 09/17/17 18:33 AST 75 units/L (5-40) H 09/17/17 18:33 ALT 47 units/L (7-56) 09/17/17 18:33 Alkaline Phosphatase 44 units/L (35-129) 09/17/17 18:33 Troponin T < 0.010 ng/mL (0.00-0.029) 09/18/17 00:38 Total Protein 7.1 g/dL (6.3-8.2) 09/17/17 18:33 Albumin 3.9 g/dL (3.9-5) 09/17/17 18:33 Albumin/Globulin Ratio 1.2 % 09/17/17 18:33 Urine Color Yellow (Yellow) 09/18/17 Unknown Urine Turbidity Clear (Clear) 09/18/17 Unknown Urine pH 8.0 (5.0-7.0) H 09/18/17 Unknown Ur Specific [place] 1.013 (1.003-1.030) 09/18/17 Unknown Urine Protein <15 mg/dl mg/dL (Negative) 09/18/17 Unknown Urine Glucose (UA) Neg mg/dL (Negative) 09/18/17 Unknown Urine Ketones 20 mg/dL (Negative) 09/18/17 Unknown Urine Blood Neg (Negative) 09/18/17 Unknown Urine Nitrite Neg (Negative) 09/18/17 Unknown Urine Bilirubin Neg (Negative) 09/18/17 Unknown Urine Urobilinogen < 2.0 mg/dL (<2.0) 09/18/17 Unknown Ur Leukocyte Esterase Neg (Negative) 09/18/17 Unknown Urine WBC (Auto) < 1.0 /HPF (0.0-6.0) 09/18/17 Unknown Urine RBC (Auto) 1.0 /HPF (0.0-6.0) 09/18/17 Unknown Urine Mucus Few /HPF 09/18/17 Unknown
--- NOTE | 2017-09-19 11:58 | Query- Dyspnea ---
Deashirley Dangelo Date:__09/19/2017 [employer]er/CDS:___Tiffaniegerda Phone#:__[phone] Exercise your independent professional judgment when responding to query. Questions asked do not imply a particular answer is desired or expected. We greatly appreciate your clarification on this issue. Clinical Documentation States: 67 Year old male was admitted on 09/17/2017 with complaints of shortness of breath, wheezing and cough productive of yellow phlegm. The Hospitalist (Dr. Fitzgerald) progress note on 09/19/2017 "Acute COPD exacerbation. Continue IV steroids and taper. Continue nebulizer treatments. Acute bronchitis. Continue IV antibiotics." Clinical Findings Show: Oxygen Flow Rate (09/17): 4L/min Oxygen Delivery Method: Nasal Cannula RR (09/17): 26 TN (09/17): 101 Please clarify if the patient had any of the following conditions based on the above clinical findings: [x ] Respiratory Failure [x ] Acute [ ] Acute on Chronic [ ] Chronic [ ] Respiratory failure due to trauma [ ] Acute Respiratory Distress Syndrome [ ] Other: [ ] Unable to determine [ ] Comment/Explanation: Present on Admission: [ x] Yes (Y) [ ] Clinically undeterminable (W) [ ] No (N) Please also document response in your Progress Notes and/or Discharge Summary and indicate if the condition was present on admission. NATE
--- NOTE | 2017-09-19 12:00 | Query-Infection ---
Dear _Rosalva_Amilcar Date:__09/19/2017 Food And Drug Research Scientist/CDS:___[place] Phone#:__[phone] Exercise your independent professional judgment when responding to this query. Questions asked do not imply a particular answer is desired or expected. We greatly appreciate your clarification on this issue. Clinical Documentation States: 67 Year old male was admitted on 09/17/2017 with complaints of shortness of breath, wheezing and cough productive of yellow phlegm. The Hospitalist (Dr. Fitzgerald) progress note on 09/19/2017 "Acute COPD exacerbation. Continue IV steroids and taper. Continue nebulizer treatments. Acute bronchitis. Continue IV antibiotics." Clinical findings show: (please check applicable parameters) OR (09/17): 101 RR 97/10): 26 Infection, known /suspected, with some of the following indicators; Specify the infection: 3 General parameters [ ] Fever (core temp >38.30C or 100.40F) [ ] Hypothermia (core temp <36C) [ ] Heart rate >90 bpm [ ] Tachypnea: >20 bpm or pCO2 < 32 mmHg [ ] Altered mental status [ ] Significant edema / +ve fluid balance (>20 ml/kg 24 h) [ ] Hyperglycemia (Bl. glucose >110 mg/dl) w/o diabetes Inflammatory parameters [ ] Leukocytosis (white blood cell count >12,000/l) [ ] Leukopenia (white blood cell count <4,000/l) [ ] Bandemia (immature WBC > 10%) [ ] Leucocyte Left Shift [ ] Plasma procalcitonin>2 SD above the normal value Hemodynamic and tissue perfusion parameters [ ] Arterial hypotension(SBP <90 mmHg, MAP <70 mmHg,or a SBP drop >40 mmHg in adults) [ ] Hyperlactatemia (>3 mmol/l) [ ] Anion Gap (> 11mEG/l) [ ] Decreased capillary refill or mottling Organ dysfunction parameters [ ] Arterial hypoxemia (PaO2/FIO2 <300) [ ] Creatinine increase =0.5 mg/dl [ ] Acute oliguria (urine output <0.5 ml | kg |h or 45 mM/l for at least 2 hrs) [ ] Coagulation abnormalities (INR >1.5 or activated partial thromboplastin time >60 s) [ ] Ileus (absent graham wel sounds) [ ] Thrombocytopenia (platelet count <100,000/l) [ ] Hyperbilirubinemia (plasma total bilirubin >4 mg/dl) According to the clinical indications above, can Bacteremia be further specified? If so, please indicate below and in your Progress Notes and/ or Discharge Summary. Indicate if the condition was present on admission. PHYSICIAN RESPONSE: [ ] Sepsis [ ] Severe Sepsis [ ] Septic Shock [ ] Septicemia [ ] Sepsis now resolved [ ] SIRS due to non-infectious cause with organ dysfunction [x ] SIRS due to non-infectious cause without organ dysfunction [ ] Other: [ ] Comment/Explanation: Present on Admission: [x ] Yes (Y) [ ] Clinically undeterminable (W) [ ] No (N) [ ] Ruled Out Please also document response in your Progress Notes and/or Discharge Summary and indicate if the condition was present on admission Notes: SIRS/ SIRS WITH ORGAN DYSFUNCTION Systemic inflammatory response syndrome (SIRS) generally refers to the systemic response to trauma/gomez or other insult such as Acute Myocardial Infarction, Acute Pancreatitis, and Major Surgery with symptoms including fever, tachycardia , tachypnea, and leukocytosis (1). BACTEREMIA Presence of viable bacteria in the circulating blood (2). This term is reserved for patients that do not manifest above SIRS response. SEPTICEMIA Generally refers to a systemic disease associated with the presence of pathological microorganisms or toxins in the blood, which can include bacteria, viruses, fungi or other organisms (1). SEPSIS Generally refers to SIRS due infection (1). SEVERE SEPSIS Generally refers to sepsis associated with acute organ dysfunction (1). SEPTIC SHOCK Generally refers to circulatory failure associated with severe sepsis (2), and defined as hypotension or hypoperfusion despite adequate fluid resuscitation (1 hour) (3). REFERENCES: 1. [employer]/Society of Critical Care Medicine Consensus Conference. Definitions for sepsis and organ failure and guidelines for the use of innovative therapies in sepsis. Critical Care Med 1992;20:864 - 74. 2. Mark larsen MM, Miguel MP, Justice BRUCE, Mitul E, Rolly D, Shad D, Kareem J, Phyllis SM , Wan JL, Dale G; International Sepsis Definitions Conference. 2001 SCCM/ESICM/ACCP/ATS/SIS International Sepsis Definitions Conference. Intensive Care Med. 2002;29(4):530-8. Epub 2002Jun 05. Review. PubMed PMID:[id number] 3. ICD-9-CM Official Guidelines for Coding and Reporting 4. Medscape Drugs, Diseases and Procedures references 5. [employer] Textbook of Internal Medicine. 18th Edition MTDD
[2017-09-19] MEDS: AMBIEN PO PRN (21:43)
[2017-09-20] MEDS: DUONEB *Not for PRN Use IH SCH ×3 (02:20→14:53)
[2017-09-20] MEDS: PERCOCET 5/325 PO PRN (02:21)
[2017-09-20] MEDS: TYLENOL PO PRN ×2 (05:00→10:51)
--- NOTE | 2017-09-20 08:22 | Discharge Summary ---
Providers - Providers Date of Admission: 09/17/17 23:00 Date of discharge: 09/20/17 Attending physician: EM MELVIN 09/18/17 08:24 Physical Therapy Evaluation and Treat [CONS] Routine Comment: Reason For Exam: Generalized weakness 09/18/17 08:25 Occupational Therapy Evaluate and Treat [CONS] Routine Comment: Reason For Exam: Generalized weakness Primary care physician: STORY READER Hospitalization Reason for admission: copd exac Condition: Stable Hospital course: 67-year-old man with a history of hypertension, COPD, CHF, emergency room with complaints of shortness of breath, wheezing and cough productive of yellow phlegm. The patient also complained of generalized weakness. The patient was admitted with the diagnosis of COPD exacerbation with acute bronchitis. The patient received systemic steroids, breathing treatments and IV antibiotics. Patient has slow but significant improvement throughout hospitalization. Dedicated discharge time 32 minutes. Disposition: [id number] TO HOME OR SELFCARE Time spent for discharge: 32 - Discharge Diagnoses (1) COPD exacerbation Status: Acute (2) Hyponatremia Status: Acute (3) Acute bronchitis Status: Acute Core Measure Documentation - Palliative Care Palliative Care/ Comfort Measures: Not Applicable - Core Measures Any of the following diagnoses?: none Exam - Constitutional Vitals: Temp Pulse Resp BP Pulse Ox 98.3 F 104 H 18 160/95 96 09/20/17 01:59 09/20/17 01:59 09/20/17 06:00 09/20/17 01:59 09/20/17 01:59 General appearance: Present: no acute distress, well-nourished - EENT Eyes: Present: PERRL ENT: hearing intact, clear oral mucosa - Neck Neck: Present: supple, normal ROM - Respiratory Respiratory effort: normal Respiratory: bilateral: CTA - Cardiovascular Heart Sounds: Present: S1 & S2. Absent: rub, click - Extremities Extremities: pulses symmetrical, No edema Peripheral Pulses: within normal limits - Abdominal General gastrointestinal: Present: soft, non-tender, non-distended, normal bowel sounds Male genitourinary: Present: normal - Integumentary Integumentary: Present: clear, warm, dry - Musculoskeletal Musculoskeletal: gait normal, strength equal bilaterally - Psychiatric Psychiatric: appropriate mood/affect, intact judgment & insight - Neurologic Neurologic: CNII-XII intact, moves all extremities Plan Activity: no restrictions Weight Bearing Status: Full Weight Bearing Diet: low fat, low cholesterol, low salt Follow up with: PRIMARY CARE, [Primary Care Provider] - 3-5 Days Prescriptions: ALBUTEROL Inhaler [ProAir HFA Inhaler] 2 puff IH QID PRN #1 inhalation PRN Reason: Shortness Of Breath ALBUTEROL NEB's [Proventil 0.083% NEBS] 2.5 mg IH TID PRN #90 neb PRN Reason: Wheezing amLODIPine [Norvasc] 10 mg PO DAILY #30 tablet Duloxetine HCl [Cymbalta] 60 mg PO BID #60 capsule. Folic Acid [Folvite] 1 mg PO QDAY #30 tablet Gabapentin [Neurontin] 300 mg PO TID #90 capsule Hydrochlorothiazide [HCTZ] 25 mg PO QDAY #30 tablet Nicotine [Habitrol] 14 mg TD QDAY #5 patch oxyCODONE /ACETAMINOPHEN [Percocet 5/325 mg] 1 tab PO Q6H PRN #10 tablet PRN Reason: Pain, Moderate (4-6) Thiamine [Vitamin B-1] 100 mg PO QDAY #30 tablet Tiotropium [place] [Spiriva] 18 mcg IH 4XD #1 cap.w.dev
[2017-09-20 08:33] VITALS: BP 158/90
[2017-09-20] MEDS: HABITROL TD SCH (10:40)
[2017-09-20] MEDS: CYMBALTA PO SCH (10:40)
[2017-09-20] MEDS: NORVASC PO SCH (10:41)
[2017-09-20] MEDS: VITAMIN B-1 PO SCH (10:41)
[2017-09-20] MEDS: SODIUM CHLORIDE FLUSH SYRINGE 10 ML IV SCH (10:42)
[2017-09-20] MEDS: PEPCID PO SCH (10:42)
[2017-09-20] MEDS: NEURONTIN PO SCH (10:46)
[2017-09-20] MEDS: FOLVITE PO SCH (10:46)
[2017-09-20] MEDS ORDERED: LEVAQUIN PO SCH (11:00)
== END 2017-09-20 16:30 | disposition home or self-care (01) | DRG 189 ==
LOC: ED 18:12 → 2B-ACE 23:00
PROVIDERS: ADMIT Internal Medicine; ATTEND Hospitalist
DX: J96.00 Acute respiratory failure, unspecified whether with hypoxia or hypercapnia (principal); J44.1 Chronic obstructive pulmonary disease with (acute) exacerbation; R65.10 Systemic inflammatory response syndrome (SIRS) of non-infectious origin without acute organ dysfunction; J44.0 Chronic obstructive pulmonary disease with (acute) lower respiratory infection; E87.1 Hypo-osmolality and hyponatremia; J20.9 Acute bronchitis, unspecified; I11.0 Hypertensive heart disease with heart failure; I50.9 Heart failure, unspecified; F17.200 Nicotine dependence, unspecified, uncomplicated; D69.6 Thrombocytopenia, unspecified; K59.00 Constipation, unspecified; Z82.49 Family history of ischemic heart disease and other diseases of the circulatory system; Z88.5 Allergy status to narcotic agent; Z79.899 Other long term (current) drug therapy; Z72.89 Other problems related to lifestyle
CPT/HCPCS: 36415; 71045; 74150; 80048; 80053; 81001; 82140; 82805; 84484; 85007; 85025; 85610; 87040; 87086; 93005; 93010; 94640; G8978-GP; G8979-GP; G8980-GP; G8987-GO; G8988-GO; G8989-GO; J1956; J2920; J2930; J7030; J7512